=== PATIENT | female | born 1980 ===

== ENCOUNTER 2020-03-18 11:40 | Outpatient (CLI) | payer MEDICARE, MEDICAID | END 2020-03-18 23:59 | LOC: WOU 11:40 | PROVIDERS: ATTEND Podiatrist Foot & Ankle Surgery | DX: E11.621 Type 2 diabetes mellitus with foot ulcer (principal); L97.522 Non-pressure chronic ulcer of other part of left foot with fat layer exposed; M86.662 Other chronic osteomyelitis, left tibia and fibula; M86.672 Other chronic osteomyelitis, left ankle and foot; R22.42 Localized swelling, mass and lump, left lower limb; Z79.4 Long term (current) use of insulin; E66.01 Morbid (severe) obesity due to excess calories; Z68.43 Body mass index [BMI] 50.0-59.9, adult; Z79.01 Long term (current) use of anticoagulants; Z79.899 Other long term (current) drug therapy | CPT/HCPCS: 11042 ==

== ENCOUNTER 2020-12-21 21:23 | Inpatient (IN) | payer MEDICARE, OTHER ==
[~2020-12-21] VITALS: Ht 165.1 cm; Wt 152.0 kg
[2020-12-21] MEDS ORDERED: ACETAMINOPHEN 325 MG TABLET PO ONE (22:00)
[2020-12-21] MEDS ORDERED: ACETAMINOPHEN ES 500 MG TABLET ONE (22:15)
--- NOTE | 2020-12-21 23:06 | NUR ---
Kit garcia in [facility] - 12/21/20 at 2307 by NAN md verbal order 25mg benadryl
--- NOTE | 2020-12-21 23:06 | NUR ---
urine sent to lab
--- NOTE | 2020-12-21 23:07 | NUR ---
verbal order 25mg benadryl iv
[2020-12-21] MEDS ORDERED: diphenhydrAMINE HCL 50 MG/ML VIAL ONE (23:08)
[2020-12-21 23:21] LABS: BILIRUBIN,URINE Negative (NEGATIVE); COLOR,URINE YELLOW (YELLOW); LEUKOCYTE ESTERASE ,URINE Large (NEGATIVE); NITRITE, URINE Positive (NEGATIVE); PROTEIN,URINE Negative (NEGATIVE); UGLUCOSE Negative (NEGATIVE); UROBILINOGEN,URINE 0.2 EU/dL (0.2)
[2020-12-21] MEDS ORDERED: diphenhydrAMINE HCL 50 MG/ML VIAL IV ONE (23:30)
[2020-12-21 23:41] LABS: BACTERIA,URINE Few /HPF (None Seen); MUCUS,URINE Few /LPF (None Seen); RBC,URINE 21-50 /HPF (0-2); SQUAMOUS EPITHELIAL CELL,UR Few /HPF (None Seen); WBC,URINE 51-80 /HPF (0-3)
[2020-12-21 23:42] LABS: BASOPHILS # (AUTO) 0.2 K/uL (0.0-0.2); BASOPHILS % (AUTO) 1.3 % (0.0-2.0); EOSINOPHILS % (AUTO) 1.8 % (0.0-6.0); HEMATOCRIT 31 % (33-45); HEMOGLOBIN 9.4 g/dL (11.5-14.8); LYMPHOCYTES # (AUTO) 2.5 K/uL (0.8-4.8); MEAN CORPUSCULAR HGB CONC 31 g/dl (31.0-36.0); MEAN CORPUSCULAR VOLUME 80 fL (82-100); MONOCYTES # (AUTO) 0.7 K/uL (0.1-1.30); MONOCYTES % (AUTO) 4.3 % (2.0-12.0); NEUTROPHILS # (AUTO) 12.7 K/uL (1.8-8.9); NEUTROPHILS % (AUTO) 77.6 % (43.0-81.0); PLATELET COUNT (AUTO) 496 K/uL (150-450); RED BLOOD CELL COUNT(AUTO) 3.84 MIL/uL (4.0-5.2); WHITE BLOOD COUNT (AUTO) 16.4 K/uL (4.3-11.0)
--- NOTE | 2020-12-21 23:51 | NUR ---
rt at bedside
--- NOTE | 2020-12-21 23:55 | NUR ---
Pt placed on BIPAP via Full mask w/ mepiplex per ER MD on order settings. Will obtain ABG in 1 hour.
[2020-12-22] VITALS (33 sets, daily range): BP systolic 93–153; BP diastolic 45–102
[2020-12-22] MEDS ORDERED: CEFEPIME 1 GM in IV D5W 50 ML IV ONE
[2020-12-22] MEDS ORDERED: CEFEPIME 1 GM VIAL ONE (00:04)
[2020-12-22 00:10] LABS: ALANINE AMINOTRANSFERASE 16 U/L (12-78); ALBUMIN 2.8 g/dL (3.4-5.0); ALKALINE PHOSPHATASE 143 U/L (46-116); ASPARTATE AMINOTRANSFERASE 21 U/L (15-37); BILIRUBIN,DIRECT 0.1 mg/dL (0.0-0.2); BILIRUBIN,TOTAL 0.3 mg/dL (0.2-1.0); CALCIUM, SERUM 9.7 mg/dL (8.5-10.1); CHLORIDE 97 mmol/L (98-107); CREATININE 1.8 mg/dL (0.6-1.3); GLUCOSE 116 mg/dL (74-106); POTASSIUM 5.5 mmol/L (3.5-5.1); SODIUM SERUM 139 mmol/L (136-145); TOTAL PROTEIN, SERUM 8.6 g/dL (6.4-8.2); UREA NITROGEN, BLOOD 33 mg/dL (7-18)
[2020-12-22 00:15] LABS: CARBON DIOXIDE 41 mmol/L (21-32)
--- NOTE | 2020-12-22 01:06 | NUR ---
ICU 258 PER RN BONDING MACHINE OPERATOR.
--- NOTE | 2020-12-22 01:20 | NUR ---
called rt for breathing tx
[2020-12-22] MEDS ORDERED: ALBUTEROL FS 2.5 MG/3 ML VIAL.NEB NEB ONE (01:30)
[2020-12-22] MEDS ORDERED: IPRATROPIUM NEB FS 0.5 MG/2.5 ML AMPUL.NEB NEB ONE (01:30)
[2020-12-22] MEDS ORDERED: IPRATROPIUM NEB FS 0.5 MG/2.5 ML AMPUL.NEB ONE (01:30)
[2020-12-22] MEDS ORDERED: ALBUTEROL FS 2.5 MG/3 ML VIAL.NEB ONE (01:30)
[2020-12-22] MEDS ORDERED: ZOLPIDEM TARTRATE 5 MG TABLET PO PRN (02:00)
[2020-12-22] MEDS ORDERED: FUROSEMIDE 40 MG/4 ML VIAL IV ONE (02:00)
[2020-12-22] MEDS ORDERED: MAGNESIUM HYDROXIDE 30 ML UDC PO PRN (02:00)
[2020-12-22] MEDS ORDERED: Z GUARD REMEDY 2 OZ OINT TP PRN (02:00)
[2020-12-22] MEDS ORDERED: diphenhydrAMINE HCL 50 MG/ML VIAL ONE (02:29)
[2020-12-22] MEDS: diphenhydrAMINE HCL 50 MG/ML VIAL IV PRN ×3 (02:45→20:41)
--- NOTE | 2020-12-22 02:56 | NUR ---
CALLED AFTER HOUR PHARMACY TO VERIFY THE ADMITTINGG ORDERS
[2020-12-22] MEDS ORDERED: FUROSEMIDE 40 MG/4 ML VIAL ONE (03:20)
--- NOTE | 2020-12-22 04:45 | NUR ---
lab at bedside
[2020-12-22 04:57] LABS: BASOPHILS # (AUTO) 0.1 K/uL (0.0-0.2); BASOPHILS % (AUTO) 0.8 % (0.0-2.0); EOSINOPHILS % (AUTO) 1.8 % (0.0-6.0); HEMATOCRIT 34 % (33-45); HEMOGLOBIN 10.3 g/dL (11.5-14.8); LYMPHOCYTES # (AUTO) 2.5 K/uL (0.8-4.8); LYMPHOCYTES % (AUTO) 16.7 % (20.0-44.0); MEAN CORPUSCULAR HGB CONC 31 g/dl (31.0-36.0); MEAN CORPUSCULAR VOLUME 81 fL (82-100); MONOCYTES # (AUTO) 0.5 K/uL (0.1-1.30); MONOCYTES % (AUTO) 3.2 % (2.0-12.0); NEUTROPHILS # (AUTO) 11.6 K/uL (1.8-8.9); NEUTROPHILS % (AUTO) 77.5 % (43.0-81.0); PLATELET COUNT (AUTO) 439 K/uL (150-450); RED BLOOD CELL COUNT(AUTO) 4.16 MIL/uL (4.0-5.2)
[2020-12-22 05:05] LABS: CALCIUM, SERUM 10.2 mg/dL (8.5-10.1); CREATININE 1.9 mg/dL (0.6-1.3); MAGNESIUM 2.9 mg/dL (1.8-2.4); PHOSPHORUS 4.6 mg/dL (2.5-4.9); POTASSIUM 5.3 mmol/L (3.5-5.1)
[2020-12-22 05:36] LABS: ABG BASE EXCESS 11.6 mmol/L; ABG BASE EXCESS 13.9 mmol/L; ABG OXYGEN SATURATION 92.5 % (92.0-98.5); ABG OXYGEN SATURATION 94.5 % (92.0-98.5); ABG PCO2 86.3 mmHg (35.0-45.0); ABG PCO2 92.9 mmHg (35.0-45.0); ABG PH 7.289 (7.350-7.450); ABG PH 7.292 (7.350-7.450); ABG PO2 72.5 mmHg (75.0-100.0); ABG PO2 84.1 mmHg (75.0-100.0); AaDO2 395.7 mmHg; AaDO2 400.4 mmHg; COHb 0.3 % (0.5-1.5); COHb 0.4 % (0.5-1.5); MetHb 0.4 % (0.0-1.5); O2Hb 91.9 % (94.0-97.0); O2Hb 93.7 % (94.0-97.0); SITE, ABG Right Radial; VENT MODE, BG NRB 15L
[2020-12-22 05:36] LABS: ABG BASE EXCESS 13.7 mmol/L; ABG OXYGEN SATURATION 93.9 % (92.0-98.5); ABG PCO2 85.6 mmHg (35.0-45.0); ABG PH 7.316 (7.350-7.450); ABG PO2 75.7 mmHg (75.0-100.0); AaDO2 404.8 mmHg; COHb 0.3 % (0.5-1.5); MetHb 0.3 % (0.0-1.5); O2Hb 93.3 % (94.0-97.0); SITE, ABG Left Radial
--- NOTE | 2020-12-22 06:13 | NUR ---
rt at bedside. Pt weaned to 50% O2. Pt saturating 97%. will continue to monitor.
--- NOTE | 2020-12-22 06:14 | NUR ---
called house sup to call for picc line
--- NOTE | 2020-12-22 07:02 | NUR ---
GAVE REPORT TO FERNANDO BULLOCK FOR JOAQUIM
--- NOTE | 2020-12-22 07:15 | NUR ---
PATIENT AWAKE AND ALERT, NO DISTRESS NOTED, O2 SAT SHOWS 95-99% ON BIPAP. COTTON CATHETER INTACT AND DRAINING WELL.
--- NOTE | 2020-12-22 07:30 | NUR ---
PATIENT ATTEMPTING TO REMOVE BIPAP MULTIPLE TIMES DESPITE REDIRECTION, PATIENT IS UNCOMFORTABLE AND IS REQUESTING FOR [employer] CANNULA HIGH FLOW. RT MADE AWARE.
--- NOTE | 2020-12-22 07:32 | NUR ---
PATIENT SPO2 SHOWS 88% ON BIPAP, PATIENT KEPT REMOVING THE BIPAP.
--- NOTE | 2020-12-22 07:49 | NUR ---
PATIENT IS TOLERATING NASA CANNULA HIGH FLOW AT THIS TIME. ON 30L 50%. WITH SPO2 OF 92-96%.
--- NOTE | 2020-12-22 07:51 | NUR ---
DR. BEAVER MADE AWARE RE: NASAL CANNULA HF.
--- NOTE | 2020-12-22 07:59 | NUR ---
DR. ULYSSES MULLER MADE AWARE OF PATIENT'S CHANGED FROM BIPAP TO NCHF, AND C/O FEELING ANXIOUSNESS.
[2020-12-22] MEDS ORDERED: NIFE-34 PO (08:15)
[2020-12-22] MEDS ORDERED: MAGN400O6 PO (08:15)
[2020-12-22] MEDS ORDERED: INSU100V7 SQ ×2 (08:15)
[2020-12-22] MEDS ORDERED: ATOR10TA PO (08:15)
[2020-12-22] MEDS ORDERED: POLY17PO4 PO (08:15)
[2020-12-22] MEDS ORDERED: PANT40TA2 PO (08:15)
[2020-12-22] MEDS ORDERED: GABA600T12 PO (08:15)
[2020-12-22] MEDS ORDERED: CRAN425C6 PO (08:15)
[2020-12-22] MEDS ORDERED: DEXT38GE12 PO (08:15)
[2020-12-22] MEDS ORDERED: ALBU18HF2 IH (08:15)
[2020-12-22] MEDS ORDERED: HYDR-4075 PO (08:15)
[2020-12-22] MEDS ORDERED: BUME1TAB8 PO (08:15)
[2020-12-22] MEDS ORDERED: CALC1TAB30 PO (08:15)
[2020-12-22] MEDS ORDERED: RISP0.2515 PO (08:15)
[2020-12-22] MEDS ORDERED: HEPA50007 SQ (08:15)
[2020-12-22] MEDS ORDERED: BENZ-13 PO (08:15)
[2020-12-22] MEDS ORDERED: CARV25TA2 PO (08:15)
[2020-12-22] MEDS ORDERED: LEVO25TA7 PO (08:15)
[2020-12-22] MEDS ORDERED: ONDA4TAB5 PO (08:15)
[2020-12-22] MEDS ORDERED: MONT10TA22 PO (08:15)
[2020-12-22] MEDS ORDERED: ACET-2605 PO (08:15)
[2020-12-22] MEDS ORDERED: METH5TAB2 PO (08:15)
[2020-12-22] MEDS ORDERED: ACET-868 PO (08:15)
[2020-12-22] MEDS ORDERED: DIPH25CA83 PO (08:15)
[2020-12-22] MEDS ORDERED: CRAN3875 PO (08:15)
[2020-12-22] MEDS ORDERED: NITR0.4T48 SL (08:15)
[2020-12-22] MEDS ORDERED: FOLI0.8T23 PO (08:15)
[2020-12-22] MEDS ORDERED: ASPI-1420 PO (08:15)
[2020-12-22] MEDS ORDERED: DOCU-141 PO (08:15)
[2020-12-22] MEDS ORDERED: INSU100V11 SQ ×2 (08:15)
[2020-12-22] MEDS ORDERED: TRAM50TA2 PO (08:15)
[2020-12-22] MEDS ORDERED: MELA5TAB PO (08:15)
--- NOTE | 2020-12-22 08:19 | NUR ---
AMRIT KING UPDATED RE: PATIENT'S RESPIRATORY STATUS.
--- NOTE | 2020-12-22 08:35 | NUR ---
PATIENT TRANSFERRED TO ROOM 261 VIA ACLS PROTOCOL, ENDORSED TO AMRIT KING, PATIENT IN GUARDED CONDITION.
--- NOTE | 2020-12-22 08:45 | NUR ---
RN NOTE PT TRANSFERRED FROM RPROCIOUS TO BED, ON HIGH FLOW NC 30L, 60% O2, SPO2 90-94%, NO SIGNS OF RESP DISTRESS OR SOB. PT IS A/Ox3 WITH PERIODS OF CONFUSION, PT IS ANXIOUS. NO PAIN NOTED. PT ALLERGIES NOTED AND DOCUMENTED. PT RAC #20 NOT INTACT, DISLODGED. PT COTTON CATH INTACT DRAINING CLEAR KYAW URINE TO GRAVITY. PT BLE SCARS AND ABD AND CHEST SCARS NOTED. ALL PT SAFETY PRECAUTIONS IN PLACE, WILL CONT TO MONITOR
[2020-12-22] MEDS: NITROGLYCERIN 0.4 MG/TAB BOTTLE SL PRN (09:40)
[2020-12-22] MEDS: CEFEPIME 2 GM in IV D5W 100 ML IV SCH ×2 (09:40→21:00)
--- NOTE | 2020-12-22 09:45 | NUR ---
RN NOTE PER PT, 0/10 CHEST PAIN POST NITRO 0.4 SL SDMIN. WILL CONT TO MONITOR. BP STABLE
[2020-12-22] MEDS ORDERED: BUMETANIDE INJ 6 MG in IV D5W 36 ML IV ONE (11:00)
[2020-12-22] MEDS: IPRATROPIUM NEB FS 0.5 MG/2.5 ML AMPUL.NEB NEB SCH ×4 (11:30→23:21)
[2020-12-22] MEDS: ALBUTEROL HALF STRENGTH 1.25 MG/3 ML VIAL.NEB NEB SCH ×4 (11:30→23:21)
--- NOTE | 2020-12-22 12:00 | NUR ---
RT RESP TX'S HELD STILL WAITING ON COVID PCR RESULTS
[2020-12-22 12:02] LABS: IRON, SERUM 25 ug/dl (50-175); TOTAL IRON BINDING CAPACITY 324 ug/dl (250-450)
[2020-12-22 12:17] LABS: FERRITIN 69 ng/mL (8-388); THYROID STIMULATING HORMONE 1.448 uIU/mL (0.358-3.74)
[2020-12-22] MEDS: ACETAMINOPHEN 325 MG TABLET PO PRN ×2 (12:37→18:30)
[2020-12-22] MEDS ORDERED: DEXTROSE 50%-WATER 50 ML DISP.SYRIN IV PRN (13:00)
[2020-12-22] MEDS: BLOOD SUGAR DIAGNOSTIC 1 EACH STRIP IN SCH ×3 (13:17→21:43)
[2020-12-22] MEDS: LORAZEPAM INJ 2 MG/ML VIAL IV PRN (13:48)
--- NOTE | 2020-12-22 14:01 | NUR ---
RN NOTE PER DR HARRISON, NO THORACENTESIS PROCEDURE D/T NOT ENOUGH FLUIDS PER ULTRASOUND
[2020-12-22] MEDS: HEPARIN SODIUM, PORCINE 5000 UNITS/1 ML VIAL SQ SCH ×2 (14:54→20:48)
--- NOTE | 2020-12-22 14:55 | NUR ---
RN NOTE HELD HEPARIN UNTIL NOW D/T SCHEDULED THORACENTESIS PROCEDURE, NEVER DONE. PER DR ARORA, OK TO ADMIN NOW
[2020-12-22] MEDS: INSULIN REGULAR, HUMAN 100 UNIT/ML 3 ML VIAL SQ PRN ×2 (17:36→21:43)
[2020-12-22] MEDS: METHADONE HCL 5 MG TABLET PO SCH (18:17)
--- NOTE | 2020-12-22 19:00 | NUR ---
SUPERVISING ARCHITECT CLOSING NOTE PT ON HIGH FLOW NC 40L 60%, NO S/S OF RESP DISTRESS OR SOB, SPO2 >94%. PT IN STABLE CONDITION. ALL PT SAFETY PRECAUTIONS IN PLACE, JOAQUIM ENDORSED TO METAL ORGAN PIPE MAKER RN
--- NOTE | 2020-12-22 19:30 | NUR ---
BOOM STICK WORKER OPENING NOTES: RECEIVED PT A/OX4 IN BED RESTING COMFORTABLY. PATIENT IN NO S/SX OF ACUTE DISTRESS AT THIS TIME. NO SOB NOTED. PATIENT'S BREATHING IS EVEN AND UNLABORED. PATIENT IS ON HF NC 40L 100%; TOLERATING WELL. PATIENT ON TELE MONITORING READING SINUS TACHY HR IS @102 AT THE TIME OF RECEIVED. PATIENT ON CCHO DIET; TOLERATES WELL. NOTED IV SITE ON R UA PICC LINE ; PATENT, INTACT AND FLUSHING WELL; NO S/S OF INFECTION OR INFILTRATION. COTTON CATH IN PLACE, MODERATE URINE OUTPUT NOTED.SAFETY MEASURES HAVE BEEN PROVIDED AND IMPLEMENTED. PATIENT BED ALARM IS ON. HEAD OF BED ELEVATED. BED IS LOCKED, IN LOWEST POSITION AND SIDE RAILS UP. CALL LIGHT WITHIN REACH OF THE PATIENT. APPLICABLE ISOLATION PRECAUTIONS IN PLACE. WILL CONTINUE TO MONITOR AND REASSESS FOR ANY CHANGES AND WILL CARRY OUT ANY ONGOING AND ACTIVE MD ORDER.
--- NOTE | 2020-12-22 19:30 | NUR ---
1929 breathing tx not administered to pt due to pending covid19 test. rn notified
--- NOTE | 2020-12-22 23:22 | NUR ---
2330 breathing tx not administered to pt due to pending covid19 test. rn notified
[2020-12-23] VITALS (26 sets, daily range): BP systolic 97–155; BP diastolic 63–100
--- NOTE | 2020-12-23 | NUR ---
RN NOTES PATIENT REMAINED TO BE IN NO SIGNS OF ACUTE RESPIRATORY DISTRESS , VITAL SIGNS WNL AT THIS TIME. PT CARE RENDERED. WILL CONTINUE TO MONITOR AND REASSESS FOR ANY CHANGES THROUGHOUT THE SHIFT.
[2020-12-23] MEDS: IPRATROPIUM NEB FS 0.5 MG/2.5 ML AMPUL.NEB NEB SCH ×6 (03:30→23:30)
[2020-12-23] MEDS: ALBUTEROL HALF STRENGTH 1.25 MG/3 ML VIAL.NEB NEB SCH ×6 (03:30→23:30)
--- NOTE | 2020-12-23 04:00 | NUR ---
RN NOTES NO NOTED CHANGES IN PATIENT CONDITION AT THIS TIME; PATIENT VITALS STABLE, NO SIGNS OF ACUTE RESPIRATORY DISTRESS. AM PATIENT CARE RENDERED. WILL CONTINUE TO MONITOR AND REASSESS FOR ANY CHANGES THROUGHOUT THE SHIFT.
--- NOTE | 2020-12-23 04:02 | NUR ---
RN NOTES RADIOLOGY WENT IN TO DO SCHEDULED CXR; PT REFUSED. RN WAS ADVISED. RN EXPLAINED RISK AND BENEFITS BUT PT STILL REFUSED. WOOD FUEL PELLETIZER MADE AWARE. WILL INFORM MD IN THE MORNING ABOUT PT REFUSAL. WILL ALSO ADVISE AM SHIFT RN AND CHARGE.
[2020-12-23 04:24] LABS: BASOPHILS # (AUTO) 0.1 K/uL (0.0-0.2); BASOPHILS % (AUTO) 0.5 % (0.0-2.0); EOSINOPHILS % (AUTO) 2.1 % (0.0-6.0); HEMATOCRIT 29 % (33-45); HEMOGLOBIN 8.7 g/dL (11.5-14.8); LYMPHOCYTES # (AUTO) 2.3 K/uL (0.8-4.8); LYMPHOCYTES % (AUTO) 18.7 % (20.0-44.0); MEAN CORPUSCULAR HGB CONC 30 g/dl (31.0-36.0); MEAN CORPUSCULAR VOLUME 80 fL (82-100); MONOCYTES # (AUTO) 0.6 K/uL (0.1-1.30); MONOCYTES % (AUTO) 5.1 % (2.0-12.0); NEUTROPHILS # (AUTO) 9.2 K/uL (1.8-8.9); NEUTROPHILS % (AUTO) 73.6 % (43.0-81.0); PLATELET COUNT (AUTO) 400 K/uL (150-450); RED BLOOD CELL COUNT(AUTO) 3.58 MIL/uL (4.0-5.2); WHITE BLOOD COUNT (AUTO) 12.4 K/uL (4.3-11.0)
[2020-12-23 04:49] LABS: ALBUMIN 2.6 g/dL (3.4-5.0); BILIRUBIN,TOTAL 0.2 mg/dL (0.2-1.0); CALCIUM, SERUM 9.7 mg/dL (8.5-10.1); CREATININE 1.8 mg/dL (0.6-1.3); MAGNESIUM 2.6 mg/dL (1.8-2.4); PHOSPHORUS 3.9 mg/dL (2.5-4.9); POTASSIUM 4.6 mmol/L (3.5-5.1)
--- NOTE | 2020-12-23 04:50 | NUR ---
RN NOTES RECEIVED CALL FROM LAB; SPOKE WITH PETRA INFORMED ABOUT CRITICAL LAB, CO2@42MMOL/L. WILL INFORM LISSY GANDHI IN THE MORNING (YESTERDAY'S RESULT WAS 39H). RN PICU MADE AWARE. *CO2 TREND: 12.21.2020: 41 12.22.2020: 39 12.23.2020: 42
[2020-12-23] MEDS: diphenhydrAMINE HCL 50 MG/ML VIAL IV PRN ×3 (05:32→18:33)
--- NOTE | 2020-12-23 07:00 | NUR ---
RN CLOSING NOTE: PATIENT REMAINS IN ROOM IN NO SIGNS OF RESPIRATORY DISTRESS, PATIENT STILL ON HF VIA NC @ 40L 60%;TOLERATING WELL SATURATING @ >95% SP02. SAFETY MEASURES IMPLEMENTED, BED IN LOWEST POSITION, LOCKED, SIDE RAILS UP, CALL LIGHT WITHIN REACH. ALL NEEDS AND ORDERS ADDRESSED DURING THE SHIFT. IV ACCESS MAINTAINED INTACT, SECURED AND FLUSHING WELL. ALL DUE MEDS GIVEN ORDERED & SCHEDULED ; PATIENT TOLERATED WELL. PATIENT KEPT CLEAN AND COMFORTABLE WITHIN THE SHIFT. PATIENT ENDORSED TO INCOMING SHIFT RN WITH STABLE VITAL SIGN AND FOR CONTINUITY OF CARE.
--- NOTE | 2020-12-23 07:40 | NUR ---
ICU/RN PT IS ON HI-FLOW O2,SAT O2-98%.V/S STABLE ,AFEBRILE.NO PAIN REPORTED AT THIS TIME.PT IS RESTING IN THE BED.AWAKE ,ALERT ,ORIENTED.OBESE.F/C DRAINING WITH YELLOW URINE.RIGHT UPPER ARM PICC LINE.REDNESS ON DARLYN AREA AND LOWER BACK NOTED.LABS REVIEW.
[2020-12-23] MEDS: BLOOD SUGAR DIAGNOSTIC 1 EACH STRIP IN SCH ×4 (07:41→21:19)
[2020-12-23 07:57] LABS: ABG BASE EXCESS 16.7 mmol/L; ABG OXYGEN SATURATION 89.2 % (92.0-98.5); ABG PCO2 60.1 mmHg (35.0-45.0); ABG PH 7.469 (7.350-7.450); ABG PO2 54.8 mmHg (75.0-100.0); AaDO2 146.7 mmHg; COHb 0.7 % (0.5-1.5); MetHb 0.1 % (0.0-1.5); O2Hb 88.5 % (94.0-97.0); SITE, ABG Right Radial; VENT MODE, BG NASAL CANNULA
--- NOTE | 2020-12-23 08:00 | NUR ---
RT RESP HHN TXS HELD WAITING ON NEGATIVE COVID PCR RESULTS
--- NOTE | 2020-12-23 09:00 | NUR ---
ICU/RN DUE MEDS ARE GIVEN ORDERED.PT REFUSED TO EAT BREAKFAST.PLACED ON 5L N/C SAT O2-95-98%.AM CARE PROVIDED.CONTINUE MONITORING.
[2020-12-23] MEDS: CEFEPIME 2 GM in IV D5W 100 ML IV SCH ×2 (09:29→20:41)
[2020-12-23] MEDS: METHADONE HCL 5 MG TABLET PO SCH (09:30)
[2020-12-23] MEDS: HEPARIN SODIUM, PORCINE 5000 UNITS/1 ML VIAL SQ SCH ×2 (09:31→20:42)
[2020-12-23] MEDS: FUROSEMIDE 100 MG/10 ML VIAL IV SCH ×3 (10:01→16:23)
[2020-12-23] MEDS: LORAZEPAM INJ 2 MG/ML VIAL IV PRN ×2 (13:33→20:39)
[2020-12-23] MEDS: INSULIN REGULAR, HUMAN 100 UNIT/ML 3 ML VIAL SQ PRN ×2 (13:43→21:20)
[2020-12-23] MEDS: SOD FERRIC GLUC 125 MG in IV NS 0.9% 100 ML IV SCH (14:17)
[2020-12-23] MEDS: ACETAMINOPHEN 325 MG TABLET PO PRN (18:33)
--- NOTE | 2020-12-23 19:30 | NUR ---
PROGRAM COORDINATOR FOR [employer]ID[employer] LIFE OPENING NOTES: RECEIVED PT A/OX3-44 IN BED RESTING COMFORTABLY. PATIENT IN NO S/SX OF ACUTE DISTRESS AT THIS TIME. NO SOB NOTED. PATIENT'S BREATHING IS EVEN AND UNLABORED. PATIENT IS ON 5L OF O2 VIA NC; TOLERATING WELL WITH 02 SAT OF 98% AT THE TIME OF RECEIVED. PATIENT ON TELE MONITORING READING SINUS TACHY HR IS @104 AT THE TIME OF RECEIVED. PATIENT ON CCHO DIET; TOLERATES WELL. NOTED IV SITE ON R UA PICC LINE ; PATENT, INTACT AND FLUSHING WELL; NO S/S OF INFECTION OR INFILTRATION. COTTON CATH IN PLACE, MODERATE URINE OUTPUT NOTED.SAFETY MEASURES HAVE BEEN PROVIDED AND IMPLEMENTED. PATIENT BED ALARM IS ON. HEAD OF BED ELEVATED. BED IS LOCKED, IN LOWEST POSITION AND SIDE RAILS UP. CALL LIGHT WITHIN REACH OF THE PATIENT. APPLICABLE ISOLATION PRECAUTIONS IN PLACE. WILL CONTINUE TO MONITOR AND REASSESS FOR ANY CHANGES AND WILL CARRY OUT ANY ONGOING AND ACTIVE MD ORDER.
--- NOTE | 2020-12-23 19:55 | NUR ---
1929 breathing tx not administered to pt due to pending covid19 test. rn notified
[2020-12-24] VITALS (15 sets, daily range): BP systolic 115–150; BP diastolic 72–109
--- NOTE | 2020-12-24 01:00 | NUR ---
RN NOTES PT GIVEN WITH PRN BENADRYL (25MG) PER REQUEST. UPON ADMINISTRATION PT COMPLAINTS AND REQUESTED FOR A HIGHER DOSE (50MG). PT IS ALSO REFUSING BIPAP UNLESS SHE CAN GET ANOTHER 25MG DOSE OF BENADRYL. TOOL HONING MACHINE SET UP OPERATOR MADE AWARE. INFORMED LISSY GANDHI ( [employer] AND INFORMED ABOUT PT'S REQUEST. LISSY ORDERED: ONE TIME ORDER OF 25MG BENADRYL NOW AND CHANGE EXISTING ORDER OF BENADRYL 25MG TO 50MG Q6H PRN. TOOL HONING MACHINE SET UP OPERATOR MADE AWARE. WILL CARRY OUT ORDER OF LISSY GANDHI. Addendum: 12/24/20 at 0135 by SARAH PERALTA RN @0133- ADVISED RT TO RE-INITIATE BIPAP; RN ALREADY GAVE AND ADMINISTER BENADRUL PER PT'S REQUESTS AND EXPLAINED IMPORTANCE OF BIPAP. PT ACKNOWLEDGED.
[2020-12-24] MEDS: diphenhydrAMINE HCL 50 MG/ML VIAL IV PRN ×4 (01:01→20:07)
--- NOTE | 2020-12-24 01:13 | NUR ---
2330 breathing tx not administered to pt due to pending covid19 test. rn notified
[2020-12-24] MEDS ORDERED: diphenhydrAMINE HCL 50 MG/ML VIAL IV ONE (01:20)
--- NOTE | 2020-12-24 01:45 | NUR ---
pt agitated at this time. settings adjusted for pt to tolerate. st 14 15 40% Addendum: 12/24/20 at 0644 by ERUM EASLEY RT Amended: Links added.
[2020-12-24] MEDS: ACETAMINOPHEN 325 MG TABLET PO PRN ×2 (02:11→08:24)
[2020-12-24] MEDS: IPRATROPIUM NEB FS 0.5 MG/2.5 ML AMPUL.NEB NEB SCH ×6 (03:30→23:21)
[2020-12-24] MEDS: ALBUTEROL HALF STRENGTH 1.25 MG/3 ML VIAL.NEB NEB SCH ×6 (03:30→23:21)
--- NOTE | 2020-12-24 04:00 | NUR ---
RN NOTES NO NOTED CHANGES IN PATIENT CONDITION AT THIS TIME; NO SIGNS OF ACUTE RESPIRATORY DISTRESS; PT STILLON NOCTURNAL BIPAP. AM PATIENT CARE RENDERED. ASH COLLECTOR MADE AWARE. WILL CONTINUE TO MONITOR AND REASSESS FOR ANY CHANGES THROUGHOUT THE SHIFT.
--- NOTE | 2020-12-24 04:38 | NUR ---
0330 breathing tx not administered to pt due to pending covid19 test. rn notified
--- NOTE | 2020-12-24 06:50 | NUR ---
RN NOTES PT REQUESTED TO BE OFF HOOKED WITH HER NOCTURNAL BIPAP; RN ACKNOWLEDGED AND DONE. PT REMAINED STABLE AND SAT @100% 02 SAT. TOWBOAT CAPTAIN MADE AWARE.
--- NOTE | 2020-12-24 07:07 | NUR ---
RN CLOSING NOTE: PATIENT REMAINS IN ROOM IN NO SIGNS OF RESPIRATORY DISTRESS, PATIENT STILL ON 5L OF 02 VIA NC;TOLERATING WELL SATURATING @ >95% SP02. SAFETY MEASURES IMPLEMENTED, BED IN LOWEST POSITION, LOCKED, SIDE RAILS UP, CALL LIGHT WITHIN REACH. ALL NEEDS AND ORDERS ADDRESSED DURING THE SHIFT. IV ACCESS MAINTAINED INTACT, SECURED AND FLUSHING WELL. ALL DUE MEDS GIVEN ORDERED & SCHEDULED ; PATIENT TOLERATED WELL. PATIENT KEPT CLEAN AND COMFORTABLE WITHIN THE SHIFT. PATIENT ENDORSED TO INCOMING SHIFT RN WITH STABLE VITAL SIGN AND FOR CONTINUITY OF CARE.
[2020-12-24] MEDS: ONDANSETRON HCL/PF 4 MG/2 ML VIAL IVP PRN ×3 (07:26→20:07)
--- NOTE | 2020-12-24 07:30 | NUR ---
RECORD RETRIEVAL SPECIALIST OPENING NOTE PT SIDE LYING IN BED, A/Ox4, ON NC 5L SPO2 95%, NO S/S OF RESP DISTRESS OR SOB. PT C/O NAUSEA AND ABD PAIN 5/10, ZOFRAN AND TYLENOL WILL BE GIVEN. PT SINUS TACHY IN 100s ON BEDSIDE MONITOR. PT OSVALDO PICC FLUCHING WELL, NO S/S OF INFECTION/INFILTRATION. ALL PT SAFETY PRECAUTIONS IN PLACE, WILL CONT TO MONITOR
[2020-12-24] MEDS: BLOOD SUGAR DIAGNOSTIC 1 EACH STRIP IN SCH ×4 (07:37→22:40)
[2020-12-24] MEDS: CEFEPIME 2 GM in IV D5W 100 ML IV SCH ×2 (08:23→20:06)
[2020-12-24] MEDS: HEPARIN SODIUM, PORCINE 5000 UNITS/1 ML VIAL SQ SCH ×2 (08:24→20:09)
[2020-12-24] MEDS: METHADONE HCL 5 MG TABLET PO SCH (08:24)
[2020-12-24] MEDS: TRAMADOL HCL 50 MG TABLET PO PRN ×2 (10:48→19:35)
--- NOTE | 2020-12-24 11:00 | NUR ---
RN NOTE PT TRANSFERRED TO TELE BED 104-1 IN STABLE CONDITION. ON NC 5L, SPO2 ABOVE 95%, NO RESP DISTRESS OR SOB. ALL PT SAFETY PRECAUTIONS IN PLACE. BEDSIDE REPORT GIVEN TO FERNANDO CLANCY
--- NOTE | 2020-12-24 11:30 | NUR ---
RN NOTES RECEIVED PT FROM ICU. REPORT GIVEN BY AMRIT KING. PT IN STABLE CONDITION. WILL CONTINUE TO MONITOR.
[2020-12-24] MEDS: GABAPENTIN 300 MG CAPSULE PO SCH ×2 (12:14→20:06)
[2020-12-24] MEDS: INSULIN REGULAR, HUMAN 100 UNIT/ML 3 ML VIAL SQ PRN ×3 (12:49→22:58)
[2020-12-24] MEDS: SOD FERRIC GLUC 125 MG in IV NS 0.9% 100 ML IV SCH (13:42)
[2020-12-24] MEDS: INSULIN ASPART/LISPRO 100 UNIT/ML CARTRIDGE SQ SCH ×2 (14:03→18:00)
[2020-12-24] MEDS: risperiDONE 0.25 MG TABLET PO SCH (17:00)
--- NOTE | 2020-12-24 17:10 | NUR ---
RN NOTES PT REFUSED RISPERIDONE. BENEFITS EXPLAINED.
--- NOTE | 2020-12-24 19:21 | NUR ---
RN NOTE PATIENT IN BED, SIDE-LYING. AWAKE, ALERT, AND ORIENTED X3. ON O2 5L VIA NASAL CANNULA. NO SOB OR ANY ACUTE RESPIRATORY DISTRESS. COTTON CATHETER DRAINING YELLOW URINE VIA GRAVITY. COMPLAINED OF SEVERE BACK PAIN, WILL ADMINISTER DUE PRN MEDICATION. IV ACCESS ON OSVALDO PICC, PATENT AND INTACT. BED LOCKED AND IN LOWEST POSITION. CALL LIGHT WITHIN REACH. ALL NEEDS ANTICIPATED.
--- NOTE | 2020-12-24 19:26 | NUR ---
RT neb tx not given due to pending pcr lab results
[2020-12-24] MEDS ORDERED: Medication Not On Formulary EA (Melatonin 5 MG) PO SCH (22:00)
[2020-12-24] MEDS: ATORVASTATIN 10 MG TABLET PO SCH (22:00)
[2020-12-24] MEDS: MONTELUKAST SODIUM (10MG) 10 MG TABLET PO SCH (22:00)
[2020-12-24] MEDS: MAG HYDROX/AL HYDROX/SIMETH 30 ML UDC PO PRN (22:39)
[2020-12-24] MEDS: INSULIN GLARGINE, 100 UNIT/ML CARTRIDGE SQ SCH (22:54)
[2020-12-25] VITALS: BP 113/74
[2020-12-25] MEDS: diphenhydrAMINE HCL 50 MG/ML VIAL IV PRN ×3 (02:50→18:02)
[2020-12-25] MEDS: ACETAMINOPHEN 325 MG TABLET PO PRN (02:50)
[2020-12-25] MEDS: IPRATROPIUM NEB FS 0.5 MG/2.5 ML AMPUL.NEB NEB SCH ×6 (03:30→23:30)
[2020-12-25] MEDS: ALBUTEROL HALF STRENGTH 1.25 MG/3 ML VIAL.NEB NEB SCH ×6 (03:30→23:30)
[2020-12-25 04:00] VITALS: BP 135/91
[2020-12-25] MEDS: GABAPENTIN 300 MG CAPSULE PO SCH ×3 (04:24→21:00)
[2020-12-25] MEDS: MAG HYDROX/AL HYDROX/SIMETH 30 ML UDC PO PRN ×3 (06:15→19:04)
[2020-12-25] MEDS: ONDANSETRON HCL/PF 4 MG/2 ML VIAL IVP PRN ×3 (06:15→19:04)
--- NOTE | 2020-12-25 07:05 | NUR ---
RN NOTE PATIENT RESTING IN BED. COMPLAINED OF SHORTNESS OF BREATH, O2 SAT 88% AT THIS TIME. APPLIED O2 8L VIA SIMPLE MASK. O2 SAT 93%. COTTON CATHETER DRAINING YELLOW KYAW URINE, OUTPUT 350CC. IV ACCESS ON OSVALDO PICC, PATENT AND INTACT. BED LOCKED AND IN LOWEST POSITION. CALL LIGHT WITHIN REACH. ALL NEEDS ATTENDED PROMPTLY. WILL ENDORSE TO AM SHIFT. Addendum: 12/25/20 at 0716 by ROMAN MITCHELL RN O2 10L VIA SIMPLE MASK
--- NOTE | 2020-12-25 07:30 | NUR ---
RN NOTE PT FOUND SEMI FOWLERS POSITION IN BED DISPLAYING S/S OF MILD DISTRESS, PT ENDORSES 10/10 PAIN SCALE AND MODERATELY LABORED BREATHING. PT C/O NAUSEA AND EPIGASTRIC PAIN. PT ALSO C/O TIGHTNESS IN CHEST. RN WILL TREAT PRN. PT CURRENTLY ON 10L O2 SIMPLE MASK. PT IS A&OX4. R PICC, PATIENT AND INTACT. RN WILL TREAT AND MONITOR.
[2020-12-25] MEDS: PANTOPRAZOLE 40 MG TABLET.DR PO SCH (07:58)
[2020-12-25] MEDS: LEVOTHYROXINE SODIUM 25 MCG TABLET PO SCH (07:58)
[2020-12-25] MEDS: BLOOD SUGAR DIAGNOSTIC 1 EACH STRIP IN SCH ×4 (07:58→21:03)
[2020-12-25 08:00] VITALS: BP 117/72
[2020-12-25] MEDS: INSULIN ASPART/LISPRO 100 UNIT/ML CARTRIDGE SQ SCH ×3 (08:01→18:05)
[2020-12-25 08:06] LABS: *SPE A/G RATIO 0.7 (0.7-1.7); *SPE ALPHA-1-GLOBULIN 0.3 g/dL (0.0-0.4); *SPE ALPHA-2-GLOBULIN 1.1 g/dL (0.4-1.0); *SPE BETA GLOBULIN 1.5 g/dL (0.7-1.3); *SPE M-SPIKE Not Observed g/dL (Not Observed)
[2020-12-25] MEDS: NITROGLYCERIN 0.4 MG/TAB BOTTLE SL PRN (08:10)
[2020-12-25] MEDS: LORAZEPAM INJ 2 MG/ML VIAL IV PRN (08:38)
[2020-12-25] MEDS: TRAMADOL HCL 50 MG TABLET PO PRN ×2 (08:38→22:04)
[2020-12-25] MEDS: risperiDONE 0.25 MG TABLET PO SCH ×3 (09:00→17:00)
[2020-12-25 09:39] LABS: BASOPHILS # (AUTO) 0.1 K/uL (0.0-0.2); BASOPHILS % (AUTO) 0.6 % (0.0-2.0); EOSINOPHILS % (AUTO) 1.5 % (0.0-6.0); HEMATOCRIT 29 % (33-45); LYMPHOCYTES # (AUTO) 2.5 K/uL (0.8-4.8); LYMPHOCYTES % (AUTO) 17.2 % (20.0-44.0); MEAN CORPUSCULAR HGB CONC 31 g/dl (31.0-36.0); MEAN CORPUSCULAR VOLUME 80 fL (82-100); MONOCYTES % (AUTO) 6.7 % (2.0-12.0); NEUTROPHILS # (AUTO) 10.6 K/uL (1.8-8.9); PLATELET COUNT (AUTO) 420 K/uL (150-450); RED BLOOD CELL COUNT(AUTO) 3.67 MIL/uL (4.0-5.2); WHITE BLOOD COUNT (AUTO) 14.3 K/uL (4.3-11.0)
[2020-12-25] MEDS: ASPIRIN EC 81 MG TABLET.DR PO SCH (09:40)
[2020-12-25] MEDS: METHADONE HCL 5 MG TABLET PO SCH (09:40)
[2020-12-25] MEDS: CEFEPIME 2 GM in IV D5W 100 ML IV SCH ×2 (09:40→21:07)
[2020-12-25] MEDS: HEPARIN SODIUM, PORCINE 5000 UNITS/1 ML VIAL SQ SCH ×2 (09:43→21:06)
[2020-12-25] MEDS: INSULIN GLARGINE, 100 UNIT/ML CARTRIDGE SQ SCH ×2 (09:44→21:02)
[2020-12-25 10:39] LABS: ALBUMIN 2.8 g/dL (3.4-5.0); BILIRUBIN,TOTAL 0.2 mg/dL (0.2-1.0); CALCIUM, SERUM 9.5 mg/dL (8.5-10.1); CREATININE 2.2 mg/dL (0.6-1.3); PHOSPHORUS 3.7 mg/dL (2.5-4.9); POTASSIUM 4.3 mmol/L (3.5-5.1); TOTAL PROTEIN, SERUM 8.1 g/dL (6.4-8.2)
--- NOTE | 2020-12-25 10:50 | NUR ---
CRITICAL LAB MAY FROM LAB CALLED TO REPORT CRITICAL LAB. PT CO2 IS 41.3
--- NOTE | 2020-12-25 11:10 | NUR ---
MD COMMUNICATION RN CALLED AND LEFT MESSAGE FOR CALL BACK WITH EXCHANGE.
--- NOTE | 2020-12-25 11:40 | NUR ---
MD COMMUNICATION RN CALLED AND LEFT CALL BACK AGAIN W/ EXCHANGE
[2020-12-25 12:00] VITALS: BP 136/74
--- NOTE | 2020-12-25 12:05 | NUR ---
MD COMMUNICATION RN SPOKE TO MD. RN GAVE CRITICAL LAB OF CO2 41.3. MD ACKNOWLEDGED AND GAVE NO ORDERS OVER PHONE.
[2020-12-25] MEDS: INSULIN REGULAR, HUMAN 100 UNIT/ML 3 ML VIAL SQ PRN ×2 (12:32→21:04)
[2020-12-25] MEDS: SOD FERRIC GLUC 125 MG in IV NS 0.9% 100 ML IV SCH (14:49)
[2020-12-25 16:00] VITALS: BP 111/74
--- NOTE | 2020-12-25 19:30 | NUR ---
RN NOTE PT FOUND SEMI FOWLERS POSITION IN BED DISPLAYING NO S/S OF DISTRESS, PT ENDORSES 0/10 PAIN SCALE AND EVENLY AND UNLABORED. PT C/O NAUSEA AND EPIGASTRIC PAIN. PT CURRENTLY ON 5L O2 NC. PT IS A&OX4. R PICC, PATIENT AND INTACT. WINDOWS LAPTOP TECHNICIAN GIVEN REPORT, ALL QUESTIONS ANSWERED. JOAQUIM TRANSFERRED.
[2020-12-25 20:00] VITALS: BP 145/84
--- NOTE | 2020-12-25 20:00 | NUR ---
RN NOTE PATIENT IN BED, AWAKE, ALERT, AND ORIENTED X3. ON O2 5L VIA NASAL CANNULA. NO SOB OR ANY ACUTE RESPIRATORY DISTRESS. COTTON CATHETER DRAINING YELLOW URINE VIA GRAVITY. V/S STABLE AFEBRILE . IV ACCESS ON OSVALDO PICC, PATENT AND INTACT. BED LOCKED AND IN LOWEST POSITION. CALL LIGHT WITHIN REACH. ALL NEEDS ANTICIPATED ALL DUE MEDS GIVEN ORDERED WILL CONTINUE TO MONITOR PTS.
[2020-12-25] MEDS: MONTELUKAST SODIUM (10MG) 10 MG TABLET PO SCH (21:00)
[2020-12-25] MEDS: ATORVASTATIN 10 MG TABLET PO SCH (21:00)
--- NOTE | 2020-12-25 22:00 | NUR ---
television actor notes blood sugar at 2200hrs is 83 mg/dl no insulin coverage given per sliding scale. will checked blood sugar again in am.
[2020-12-26] VITALS (31 sets, daily range): BP systolic 106–157; BP diastolic 39–105
[2020-12-26] MEDS: diphenhydrAMINE HCL 50 MG/ML VIAL IV PRN ×4 (00:47→21:07)
[2020-12-26] MEDS: LORAZEPAM INJ 2 MG/ML VIAL IV PRN ×3 (01:48→21:56)
[2020-12-26] MEDS: IPRATROPIUM NEB FS 0.5 MG/2.5 ML AMPUL.NEB NEB SCH ×6 (03:28→23:07)
[2020-12-26] MEDS: ALBUTEROL HALF STRENGTH 1.25 MG/3 ML VIAL.NEB NEB SCH ×6 (03:28→23:07)
[2020-12-26] MEDS: GABAPENTIN 300 MG CAPSULE PO SCH ×3 (05:11→20:56)
--- NOTE | 2020-12-26 06:41 | NUR ---
television installer notes Pts in bed a/ox4 ,refused morning care offered again , pts refused at this time ,continue on 5 liters of o2 via nc sating 97 %no sob no distress noted will endorse to rn day shift for continuity of careall needs attended too.
--- NOTE | 2020-12-26 07:15 | NUR ---
RN Opening Notes Received patient comfortably resting in bed, on O2 at 5lpm via NC. No SOB, no respiratory distress. Patient asleep but arousable to voice and tactile stimuli. Patient denies pain and discomfort at this time. RUE PICC all lines intact and patent, flushing well. Call light within easy reach, bed at lowest position and locked. Will continue to monitor.
[2020-12-26] MEDS: BLOOD SUGAR DIAGNOSTIC 1 EACH STRIP IN SCH ×4 (07:46→21:31)
[2020-12-26 08:00] LABS: BASOPHILS # (AUTO) 0.1 K/uL (0.0-0.2); BASOPHILS % (AUTO) 0.6 % (0.0-2.0); EOSINOPHILS % (AUTO) 2.2 % (0.0-6.0); HEMATOCRIT 28 % (33-45); HEMOGLOBIN 8.7 g/dL (11.5-14.8); LYMPHOCYTES # (AUTO) 2.2 K/uL (0.8-4.8); LYMPHOCYTES % (AUTO) 18.6 % (20.0-44.0); MEAN CORPUSCULAR HGB CONC 31 g/dl (31.0-36.0); MEAN CORPUSCULAR VOLUME 80 fL (82-100); MONOCYTES # (AUTO) 0.8 K/uL (0.1-1.30); MONOCYTES % (AUTO) 6.9 % (2.0-12.0); NEUTROPHILS # (AUTO) 8.6 K/uL (1.8-8.9); NEUTROPHILS % (AUTO) 71.7 % (43.0-81.0); PLATELET COUNT (AUTO) 379 K/uL (150-450); RED BLOOD CELL COUNT(AUTO) 3.52 MIL/uL (4.0-5.2)
--- NOTE | 2020-12-26 08:00 | NUR ---
RN Notes Reported Critical CO2 [address] Cormier, per MD will wait for the results of ABG. Patient is stable at this time, VS WNL. Will continue to monitor patient.
[2020-12-26 08:03] LABS: CALCIUM, SERUM 9.1 mg/dL (8.5-10.1); CREATININE 2.3 mg/dL (0.6-1.3); POTASSIUM 4.5 mmol/L (3.5-5.1)
[2020-12-26] MEDS: PANTOPRAZOLE 40 MG TABLET.DR PO SCH (08:11)
[2020-12-26] MEDS: LEVOTHYROXINE SODIUM 25 MCG TABLET PO SCH (08:11)
[2020-12-26] MEDS: ASPIRIN EC 81 MG TABLET.DR PO SCH (08:11)
[2020-12-26] MEDS: CEFEPIME 2 GM in IV D5W 100 ML IV SCH ×2 (08:12→21:03)
[2020-12-26] MEDS: METHADONE HCL 5 MG TABLET PO SCH (08:12)
[2020-12-26] MEDS: HEPARIN SODIUM, PORCINE 5000 UNITS/1 ML VIAL SQ SCH ×2 (08:15→21:31)
[2020-12-26] MEDS: INSULIN GLARGINE, 100 UNIT/ML CARTRIDGE SQ SCH ×2 (08:16→21:30)
--- NOTE | 2020-12-26 08:30 | NUR ---
RN Notes All due meds given as ordered.
[2020-12-26] MEDS: INSULIN REGULAR, HUMAN 100 UNIT/ML 3 ML VIAL SQ PRN ×4 (08:34→21:28)
[2020-12-26] MEDS: risperiDONE 0.25 MG TABLET PO SCH ×4 (08:37→18:09)
[2020-12-26] MEDS: INSULIN ASPART/LISPRO 100 UNIT/ML CARTRIDGE SQ SCH ×3 (08:37→17:11)
[2020-12-26 09:16] LABS: ABG BASE EXCESS 12.3 mmol/L; ABG OXYGEN SATURATION 94.9 % (92.0-98.5); ABG PCO2 85.3 mmHg (35.0-45.0); ABG PH 7.302 (7.350-7.450); ABG PO2 82.1 mmHg (75.0-100.0); AaDO2 134.4 mmHg; COHb 0.4 % (0.5-1.5); MetHb 0.3 % (0.0-1.5); O2Hb 94.2 % (94.0-97.0); SITE, ABG Right Radial; VENT MODE, BG nasal cannula
--- NOTE | 2020-12-26 09:30 | NUR ---
RN Notes Paged Dr. Cormier and relayed ABG results with emphasis on pH 7.302, pCO2 85.3, pO2 82.1, per MD patient needs Bipap for few hours. ALso notified MD that RT already titrated O2 to 2lpm from 5lpm. Will notify RT, will continue to monitor.
--- NOTE | 2020-12-26 09:50 | NUR ---
RN Notes Paged Dr. Cormier again and notified him that per policy, patients on Bipap should be transferred to ICU. MD agreed and gave order to transfer patient to ICU for rescue Bipap and for closing monitoring. Per MD, rescue Bipap is still needed even with lowering O2 to 2lpm. Notified Charge Nurse Kaci and RT in charge. Patient stable at this time. Will continue to monitor.
--- NOTE | 2020-12-26 10:18 | NUR ---
Rn Notes Transferred patient to ICU per Dr. Cormier's order due for Bipap and closer monitoring. Bedside report given and endorsed care to receiving RN Rafael.
--- NOTE | 2020-12-26 10:22 | NUR ---
RT NOTE PT AWAKE AND ALERT. PT REFUSED BIPAP AT THIS TIME. CHARGE NURSE AARON AND RN PORTIA AWARE.
--- NOTE | 2020-12-26 10:30 | NUR ---
BUNDLE WRAPPER NOTES Patient was received at apprx 10:10 am. Patient is alert and oriented x3/4. On 2 liters 02 via n/c. Vitals assessed and documented. Patient provided care and linen changed. HOB kept elevated. Patient refused bipap. Call light with in reach. Will continue to monitor.
[2020-12-26] MEDS: ONDANSETRON HCL/PF 4 MG/2 ML VIAL IVP PRN (11:17)
--- NOTE | 2020-12-26 13:09 | NUR ---
Clinical Social Work Note Pt is a 40 year old woman who was vaping a liquid at hr bed on the [facility] unit. Pt denies this and said " It was just sitting at my school office manager". Pt denies substance dependence but is on Methadone and requesting Ativan on ICU. Pt is alert and oriented x4 but was resistant to social work treatment. You stated " who told you i need services". Pt is morbidly obese and has been living in nursing homes after several spinal surgeries. She will go to a SNF once she is medically stable. she is refusing biPAP on ICU as she says " she is claustrophobic". Pt is competent to make decisions. She has decubitae. Patient is refusing any intervention or referral from this rn social services. If she requests resources rn social services can certainly follow up at a later time. at this time, no further intervention is indicated.
[2020-12-26] MEDS: ACETAMINOPHEN 325 MG TABLET PO PRN (13:12)
[2020-12-26] MEDS ORDERED: MAG HYDROX/AL HYDROX/SIMETH 30 ML UDC PO ONE (14:00)
[2020-12-26] MEDS ORDERED: LIDOCAINE VISCOUS 2% UD 15 ML UDC MM ONE (14:00)
--- NOTE | 2020-12-26 16:00 | NUR ---
Patient given equal parts mylanta and viscous lidocaine per MD Papazian orders.
[2020-12-26] MEDS: SOD FERRIC GLUC 125 MG in IV NS 0.9% 100 ML IV SCH (16:07)
[2020-12-26] MEDS: GLUCERNA SHAKE 237 ML CAN PO SCH (16:42)
--- NOTE | 2020-12-26 18:45 | NUR ---
LYRIC WRITER CLOSING NOTES Patient is alert and oriented x3. Patient is breathing even and labored. On 02 5lpm via n/c with 02 saturation of 94%. Patient's hob elevated. Patient noted with right upper arm picc line and flushes well. Voss cath intact and hanging to gravity with clear yellow urine output of 600 cc. No c/o pain or discomfort. Patient started screaming at staff and wanted to keep it at 5 liters. Patient explained about the risks of co2 accumulation but refused. Will continue to monitor. Call light with in reach. Bed is in lowest and locked position.Will endorse to next shift for JOAQUIM and to collect stool sample.
--- NOTE | 2020-12-26 20:00 | NUR ---
RN opening notes In bed, resting comfortably in bed without any distress. On 5lpm O2 via nasal cannula, tolerating well. No complaint of pain or discomfort. Alert and oriented. Able to communicate needs verbally. Vital signs wnl. Will continue to monitor.
[2020-12-26] MEDS: ATORVASTATIN 10 MG TABLET PO SCH (20:59)
[2020-12-26] MEDS: MONTELUKAST SODIUM (10MG) 10 MG TABLET PO SCH (20:59)
[2020-12-26] MEDS: MAG HYDROX/AL HYDROX/SIMETH 30 ML UDC PO PRN (22:01)
[2020-12-27] VITALS (48 sets, daily range): BP systolic 105–177; BP diastolic 38–123
--- NOTE | 2020-12-27 00:37 | NUR ---
PT IS AWAKE ALERT ON 5L NC. NO DISTRESS. I ASKED PT IF SHE WANTS TO USE BIPAP AND SHE SAID NO SHE IS FINE. NOTIFIED RN, BIPAP S/B.
[2020-12-27] MEDS: IPRATROPIUM NEB FS 0.5 MG/2.5 ML AMPUL.NEB NEB SCH ×7 (02:19→23:30)
[2020-12-27] MEDS: ALBUTEROL HALF STRENGTH 1.25 MG/3 ML VIAL.NEB NEB SCH ×7 (02:19→23:30)
[2020-12-27] MEDS: diphenhydrAMINE HCL 50 MG/ML VIAL IV PRN ×3 (04:49→21:27)
[2020-12-27] MEDS: GABAPENTIN 300 MG CAPSULE PO SCH ×3 (04:49→21:26)
--- NOTE | 2020-12-27 04:57 | NUR ---
RN closing notes Resting comfortably in bed with no distress noted. Still on 5lpm O2 via nasal cannula tolerating well. Requested for Benedryl 1mg x 2 with allergy attacks. Noted patient ate a lot of dinner and snacks, discussed the risks of eating a lot of food before sleeping but patient did not listened. Requested for ativan 1mg x 1 for anxiety, with help. No complaint of pain or discomfort. Refused to be cleanse. No significant change of condition. Vital signs wnl. Kept clean and dry. Will endorse to next shift for continuity of care.
[2020-12-27] MEDS: MAG HYDROX/AL HYDROX/SIMETH 30 ML UDC PO PRN (06:31)
[2020-12-27] MEDS: LORAZEPAM INJ 2 MG/ML VIAL IV PRN ×3 (06:31→21:41)
--- NOTE | 2020-12-27 06:41 | NUR ---
RN notes Patient called requesting ativan 1mg to be administered as she was feeling very anxious and maalox for stomach upset. Vital signs wnl. Will monitor results and endorse to next shift.
[2020-12-27] MEDS: BLOOD SUGAR DIAGNOSTIC 1 EACH STRIP IN SCH ×4 (07:30→22:05)
--- NOTE | 2020-12-27 07:30 | NUR ---
FRUIT RANCHER OPENING NOTES Patient was received in bed sleeping. Per report patient has received anti anxiety for being anxious. On 5 liters 02 via n/c. Vitals assessed, Patient's HOB kept elevated. right upper arm picc line flushed well and patent. Call light with in reach. Will continue to monitor.
[2020-12-27] MEDS: GLUCERNA SHAKE 237 ML CAN PO SCH ×2 (08:00→17:00)
--- NOTE | 2020-12-27 08:12 | NUR ---
RT NOTE PATIENT'S TREATMENT AND ABG HELD AT THIS TIME DUE TO AGITATION PER RN(PORTIA). PATIENT IS RESTING COMFORTABLY AT THIS TIME BUT IS EASILY AGITATED AND COMBATIVE. RN WILL CALL ME WHEN PATIENT IS AWAKE.
[2020-12-27] MEDS: risperiDONE 0.25 MG TABLET PO SCH ×2 (09:00→17:00)
[2020-12-27] MEDS: PANTOPRAZOLE 40 MG TABLET.DR PO SCH (09:22)
[2020-12-27] MEDS: LEVOTHYROXINE SODIUM 25 MCG TABLET PO SCH (09:22)
[2020-12-27] MEDS: CEFEPIME 2 GM in IV D5W 100 ML IV SCH ×2 (09:22→20:25)
[2020-12-27] MEDS: METHADONE HCL 5 MG TABLET PO SCH (09:23)
[2020-12-27] MEDS: ASPIRIN EC 81 MG TABLET.DR PO SCH (09:24)
[2020-12-27] MEDS: INSULIN ASPART/LISPRO 100 UNIT/ML CARTRIDGE SQ SCH ×3 (09:32→17:38)
[2020-12-27] MEDS: HEPARIN SODIUM, PORCINE 5000 UNITS/1 ML VIAL SQ SCH ×2 (09:33→20:37)
[2020-12-27] MEDS: INSULIN REGULAR, HUMAN 100 UNIT/ML 3 ML VIAL SQ PRN ×4 (09:34→22:04)
[2020-12-27] MEDS: INSULIN GLARGINE, 100 UNIT/ML CARTRIDGE SQ SCH ×3 (09:35→22:09)
[2020-12-27 10:14] LABS: ABG BASE EXCESS 7.1 mmol/L; ABG PCO2 65.2 mmHg (35.0-45.0); ABG PH 7.339 (7.350-7.450); ABG PO2 75.8 mmHg (75.0-100.0); AaDO2 134.4 mmHg; COHb 0.2 % (0.5-1.5); MetHb 0.2 % (0.0-1.5); O2Hb 93.6 % (94.0-97.0); SITE, ABG Right Radial; VENT MODE, BG NASAL CANNULA
--- NOTE | 2020-12-27 11:00 | NUR ---
Patient teaching done regarding diet management but patient refused.
--- NOTE | 2020-12-27 15:00 | NUR ---
Patient noted with episods of anxiety and agitation and request anti anxiety. Non pharmalogical nursing interventions provided to no avail. Patient given prn ativan with good effect.Call light with in reach.
[2020-12-27 15:42] LABS: BASOPHILS # (AUTO) 0.1 K/uL (0.0-0.2); EOSINOPHILS % (AUTO) 2.2 % (0.0-6.0); LYMPHOCYTES # (AUTO) 1.3 K/uL (0.8-4.8); LYMPHOCYTES % (AUTO) 21.5 % (20.0-44.0); MEAN CORPUSCULAR HGB CONC 32 g/dl (31.0-36.0); MEAN CORPUSCULAR VOLUME 81 fL (82-100); MONOCYTES # (AUTO) 0.3 K/uL (0.1-1.30); MONOCYTES % (AUTO) 5.6 % (2.0-12.0); NEUTROPHILS # (AUTO) 4.3 K/uL (1.8-8.9); NEUTROPHILS % (AUTO) 69.7 % (43.0-81.0); RED BLOOD CELL COUNT(AUTO) 2.29 MIL/uL (4.0-5.2); WHITE BLOOD COUNT (AUTO) 6.2 K/uL (4.3-11.0)
[2020-12-27 15:50] LABS: CALCIUM, SERUM 8.8 mg/dL (8.5-10.1); CREATININE 2.1 mg/dL (0.6-1.3); POTASSIUM 4.3 mmol/L (3.5-5.1)
[2020-12-27 16:00] LABS: HEMATOCRIT 19 % (33-45); HEMOGLOBIN 5.9 g/dL (11.5-14.8)
--- NOTE | 2020-12-27 16:00 | NUR ---
Patient's blood recollected and resent to lab.
[2020-12-27 16:01] LABS: PLATELET COUNT (AUTO) 11 K/uL (150-450)
[2020-12-27 16:04] LABS: EOSINOPHILS % (MANUAL) 3 % (0-4); LYMPHOCYTES % (MANUAL) 27 % (16-48); MONOCYTES % (MANUAL) 7 % (0-11.0); NEUTROPHILS % (MANUAL) 63 (42-76)
[2020-12-27 17:10] LABS: BASOPHILS # (AUTO) 0.1 K/uL (0.0-0.2); BASOPHILS % (AUTO) 0.6 % (0.0-2.0); HEMATOCRIT 28 % (33-45); HEMOGLOBIN 8.6 g/dL (11.5-14.8); LYMPHOCYTES # (AUTO) 2.2 K/uL (0.8-4.8); LYMPHOCYTES % (AUTO) 18.7 % (20.0-44.0); MEAN CORPUSCULAR HGB CONC 31 g/dl (31.0-36.0); MEAN CORPUSCULAR VOLUME 82 fL (82-100); MONOCYTES # (AUTO) 0.7 K/uL (0.1-1.30); MONOCYTES % (AUTO) 6.4 % (2.0-12.0); NEUTROPHILS # (AUTO) 8.4 K/uL (1.8-8.9); NEUTROPHILS % (AUTO) 72.3 % (43.0-81.0); PLATELET COUNT (AUTO) 411 K/uL (150-450); RED BLOOD CELL COUNT(AUTO) 3.46 MIL/uL (4.0-5.2); WHITE BLOOD COUNT (AUTO) 11.6 K/uL (4.3-11.0)
[2020-12-27] MEDS: SOD FERRIC GLUC 125 MG in IV NS 0.9% 100 ML IV SCH (17:39)
--- NOTE | 2020-12-27 18:49 | NUR ---
KILN PUSHER CLOSING NOTES Patient was received in bed sleeping. Per report patient has received anti anxiety for being anxious. On 5 liters 02 via n/c. Vitals assessed, Patient's HOB kept elevated. right upper arm picc line flushed well and patent. Call light with in reach. Will continue to monitor. Addendum: 12/27/20 at 1849 by MAXWELL GARCIA RN INCORRECT ENTRY
--- NOTE | 2020-12-27 18:49 | NUR ---
LINING SCRUBBER CLOSING NOTES Patient is alert and oriented x3. Patient is breathing even and labored. On 02 5lpm via n/c with 02 saturation of 95%. Patient's hob elevated. Patient noted with right upper arm picc line and flushes well. Voss cath intact and hanging to gravity with clear yellow urine output of 800C. No c/o pain or discomfort. Patient non compliant with diet during shift. Patient also encouraged to turn and reposition but refused. Will continue to monitor. Call light with in reach. Bed is in lowest and locked position.Will endorse to next shift for JOAQUIM.
[2020-12-27] MEDS: ACETAMINOPHEN 325 MG TABLET PO PRN (18:57)
--- NOTE | 2020-12-27 19:30 | NUR ---
RN opening notes Received patient awake in bed watching TV. Alert and oriented. Verbally able to communicate needs. No complaint of pain or discomfort. No distress noted. On 2lpm O2 via nasal cannula tolerating well. Vital signs wnl. Kept clean and dry. Will continue to monitor. Addendum: 12/28/20 at 0246 by ASHLEY PAYNE RN on 5lpm O2 not 2lpm
[2020-12-27] MEDS: MONTELUKAST SODIUM (10MG) 10 MG TABLET PO SCH (21:26)
[2020-12-27] MEDS: ATORVASTATIN 10 MG TABLET PO SCH (21:27)
[2020-12-28] VITALS (25 sets, daily range): BP systolic 103–160; BP diastolic 64–100
--- NOTE | 2020-12-28 01:30 | NUR ---
lesa cortez at 0130. rn notified Addendum: 12/28/20 at 0558 by ERUM EASLEY RT Amended: Links added.
[2020-12-28] MEDS: ALBUTEROL HALF STRENGTH 1.25 MG/3 ML VIAL.NEB NEB SCH ×5 (03:30→19:55)
[2020-12-28] MEDS: IPRATROPIUM NEB FS 0.5 MG/2.5 ML AMPUL.NEB NEB SCH ×5 (03:30→19:55)
--- NOTE | 2020-12-28 03:30 | NUR ---
pt refused breathing tx and bipaop at 0330. rn notified Addendum: 12/28/20 at 0558 by ERUM EASLEY RT Amended: Links added.
[2020-12-28] MEDS: diphenhydrAMINE HCL 50 MG/ML VIAL IV PRN ×4 (03:33→21:18)
[2020-12-28] MEDS: GABAPENTIN 300 MG CAPSULE PO SCH ×3 (05:29→21:10)
--- NOTE | 2020-12-28 05:33 | NUR ---
RN closing notes In bed resting comfortably. No distress noted. Bipap applied for two hours at 2100 upr 2300, and asked the RT to put back the nasal cannula as she felt very uncomfortable. Maintains O2sat at 95-97% with nasal cannula. At about 0400 patient asked the RT for bipap application and was on until this time. Requested ativan 1mg x 2 and Benadryl 50mg x 2 for allergy, with help and relief. No adverse effect noted. Refused to be cleanse or have the beddings changed. Vital signs wnl. Kept clean and dry. Will endorse to next shift for continuity of care.
--- NOTE | 2020-12-28 07:15 | NUR ---
FURNITURE MOVER DRIVER OPENING NOTES RECEIVED PT RESTING IN BED. A/O X4. ON 5L O2 VIA NC. O2 SAT @96%. NO SOB OR ANY S/S OF ACUTE RESPIRATORY DISTRESS NOTED. NO PAIN REPORTED AT THIS TIME. IV ACCESS ON OSVALDO PICC LINE INTACT, PATENT AND FLUSHED. SAFETY MEASURES IMPLEMENTED. CALL LIGHT WITHIN REACH. HOB ELEVATED. BED LOCKED AND IN LOWEST POSITION WITH SIDE RAILS UP X3. WILL CONTINUE TO MONITOR
[2020-12-28] MEDS: BLOOD SUGAR DIAGNOSTIC 1 EACH STRIP IN SCH ×4 (08:18→22:16)
[2020-12-28] MEDS: METHADONE HCL 5 MG TABLET PO SCH (08:19)
[2020-12-28] MEDS: GLUCERNA SHAKE 237 ML CAN PO SCH ×2 (08:19→16:47)
[2020-12-28] MEDS: PANTOPRAZOLE 40 MG TABLET.DR PO SCH (08:19)
[2020-12-28] MEDS: risperiDONE 0.25 MG TABLET PO SCH ×2 (08:19→16:46)
[2020-12-28] MEDS: LEVOTHYROXINE SODIUM 25 MCG TABLET PO SCH (08:19)
[2020-12-28] MEDS: ASPIRIN EC 81 MG TABLET.DR PO SCH (08:19)
[2020-12-28] MEDS: CEFEPIME 2 GM in IV D5W 100 ML IV SCH ×2 (08:20→21:10)
[2020-12-28] MEDS: INSULIN ASPART/LISPRO 100 UNIT/ML CARTRIDGE SQ SCH ×3 (08:28→17:16)
[2020-12-28] MEDS: INSULIN REGULAR, HUMAN 100 UNIT/ML 3 ML VIAL SQ PRN ×4 (08:34→22:21)
[2020-12-28] MEDS: INSULIN GLARGINE, 100 UNIT/ML CARTRIDGE SQ SCH ×2 (08:36→22:20)
[2020-12-28] MEDS: HEPARIN SODIUM, PORCINE 5000 UNITS/1 ML VIAL SQ SCH ×2 (08:37→21:13)
[2020-12-28] MEDS: ACETAMINOPHEN 325 MG TABLET PO PRN ×2 (11:07→21:20)
[2020-12-28] MEDS ORDERED: LIDOCAINE VISCOUS 2% UD 15 ML UDC PO SCH (12:00)
[2020-12-28] MEDS ORDERED: MAG HYDROX/AL HYDROX/SIMETH 30 ML UDC PO SCH (12:00)
[2020-12-28] MEDS: LORAZEPAM INJ 2 MG/ML VIAL IV PRN ×2 (12:41→23:34)
--- NOTE | 2020-12-28 19:04 | NUR ---
RN CLOSING NOTES TRANSFERRED PT TO [facility] ROOM 107 PER PROTOCOL. NO SIGNIFICANT CHANGES THROUGHOUT THE SHIFT. NO SOB OR ANY DISTRESS NOTED. NO PAIN REPORTED AT THIS TIME. KEPT CLEAN AND COMFORTABLE. ALL DUE MEDS GIVEN. NEEDS ATTENDED. SAFETY MEASURES IN PLACE. WILL ENDORSE TO NIGHT RN FOR JOAQUIM.
--- NOTE | 2020-12-28 19:53 | NUR ---
RN NOTE PATIENT ALERT AND ORIENTED X4, ABLE TO MAKE NEEDS KNOWN. ON O2 5L VIA NASAL CANNULA, NO SOB OR ANY RESPIRATORY DISTRESS. DENIES ANY PAIN AT THIS TIME. COTTON CATH DRAINING YELLOW KYAW URINE VIA GRAVITY. OSVALDO PICC LINE PATENT AND INTACT. BED LOCKED AND IN LOWEST POSITION. CALL LIGHT WITHIN REACH. SAFETY MEASURES MAINTAINED. ALL NEEDS ANTICIPATED.
[2020-12-28] MEDS: ATORVASTATIN 10 MG TABLET PO SCH (21:10)
[2020-12-28] MEDS: MONTELUKAST SODIUM (10MG) 10 MG TABLET PO SCH (21:10)
[2020-12-28] MEDS: MAG HYDROX/AL HYDROX/SIMETH 30 ML UDC PO PRN (22:16)
[2020-12-29] VITALS: BP 128/78
[2020-12-29] MEDS: IPRATROPIUM NEB FS 0.5 MG/2.5 ML AMPUL.NEB NEB SCH ×7 (00:20→23:14)
[2020-12-29] MEDS: ALBUTEROL HALF STRENGTH 1.25 MG/3 ML VIAL.NEB NEB SCH ×7 (00:20→23:14)
[2020-12-29] MEDS: diphenhydrAMINE HCL 50 MG/ML VIAL IV PRN ×4 (03:32→21:59)
[2020-12-29] MEDS: ACETAMINOPHEN 325 MG TABLET PO PRN (03:38)
[2020-12-29 04:00] VITALS: BP 147/80
[2020-12-29] MEDS: GABAPENTIN 300 MG CAPSULE PO SCH ×3 (05:15→21:41)
[2020-12-29] MEDS: LORAZEPAM INJ 2 MG/ML VIAL IV PRN ×4 (05:35→23:34)
--- NOTE | 2020-12-29 07:09 | NUR ---
RN NOTE PATIENT ALERT AND ORIENTED X4. ON O2 5L VIA NASAL CANNULA, NO SOB OR ANY RESPIRATORY DISTRESS. TOLERATED BIPAP FOR 3 HOURS MAX LAST NIGHT. COTTON CATH DRAINING YELLOW [place] URINE VIA GRAVITY OUTPUT 750CC. OSVALDO PICC LINE PATENT AND INTACT. BED LOCKED AND IN LOWEST POSITION. CALL LIGHT WITHIN REACH. ENDORSED TO AM SHIFT.
[2020-12-29] MEDS ORDERED: IPRATROPIUM NEB FS 0.5 MG/2.5 ML AMPUL.NEB ONE (07:47)
[2020-12-29] MEDS ORDERED: ALBUTEROL HALF STRENGTH 1.25 MG/3 ML VIAL.NEB ONE (07:47)
[2020-12-29] MEDS: PANTOPRAZOLE 40 MG TABLET.DR PO SCH (07:48)
[2020-12-29] MEDS: LEVOTHYROXINE SODIUM 25 MCG TABLET PO SCH (07:49)
[2020-12-29] MEDS: INSULIN ASPART/LISPRO 100 UNIT/ML CARTRIDGE SQ SCH ×3 (08:03→18:23)
[2020-12-29] MEDS: METHADONE HCL 5 MG TABLET PO SCH (08:05)
[2020-12-29] MEDS: ASPIRIN EC 81 MG TABLET.DR PO SCH (08:05)
[2020-12-29] MEDS: risperiDONE 0.25 MG TABLET PO SCH ×2 (08:05→17:00)
[2020-12-29] MEDS: BLOOD SUGAR DIAGNOSTIC 1 EACH STRIP IN SCH ×4 (08:06→21:41)
[2020-12-29 08:28] VITALS: BP 144/94
[2020-12-29] MEDS: GLUCERNA SHAKE 237 ML CAN PO SCH ×2 (08:46→16:17)
[2020-12-29] MEDS: CEFEPIME 2 GM in IV D5W 100 ML IV SCH ×2 (09:11→21:39)
[2020-12-29] MEDS: HEPARIN SODIUM, PORCINE 5000 UNITS/1 ML VIAL SQ SCH (09:19)
[2020-12-29] MEDS ORDERED: MAGNESIUM HYDROXIDE 30 ML UDC PO PRN (10:30)
[2020-12-29] MEDS ORDERED: LIDOCAINE VISCOUS 2% UD 15 ML UDC MM SCH (10:30)
[2020-12-29] MEDS ORDERED: LIDOCAINE VISCOUS 2% UD 15 ML UDC MM PRN (10:42)
[2020-12-29] MEDS: INSULIN GLARGINE, 100 UNIT/ML CARTRIDGE SQ SCH ×2 (10:46→21:54)
[2020-12-29 13:09] VITALS: BP 148/90
[2020-12-29] MEDS: TRAMADOL HCL 50 MG TABLET PO PRN ×2 (16:15→23:35)
[2020-12-29 16:24] VITALS: BP 154/98
--- NOTE | 2020-12-29 16:34 | NUR ---
RN NOTES PATIENT RESTING PEACEFULLY EASILY AROUSED, ALERT AND ORIENTED X4. ON O2 5L VIA NASAL CANNULA, NO SOB NO DISTRESS NOTED, COTTON CATH DRAINING YELLOW [place] URINE VIA GRAVITY OUTPUT 355CC AT THIS TIME, OSVALDO PICC LINE PATENT AND INTACT , ALL IV MEDICATIONS GIVEN, NO ADVERSE SIDE EFFECTS NOTED, BED LOCKED AND IN LOWEST POSITION. CALL LIGHT WITHIN REACH. WILL CONTINUE TO MONITOR AND HELP REPOSITION EVERY 2 HOURS OR REQUESTED, PAIN MEDICATION IS EFFECTIVE, ALL NEEDS MET IN A TIMELY MANNER.
--- NOTE | 2020-12-29 17:27 | NUR ---
RN NOTES PATIENT MADE NEEDS KNOWN AND REQUESTED NOT TO HAVE THE RISPERIDOLE ORDER, STATED IT MAKES HER HAVE SUICIDAL THOUGHTS AND SHE REFUSES TO TAKE THE MEDICATIONS. THESE MEDS HELD AT THIS TIME. WILL CONTINUE TO EDUCATE AND PROVIDE PATIENT WITH THE PROS AND CONS OF TAKING THE MEDICATION FOR HER NEEDS BUT STILL CONTINUES TO REFUSE THE MEDICATIONS.
[2020-12-29 20:44] VITALS: BP 152/90
[2020-12-29] MEDS: MONTELUKAST SODIUM (10MG) 10 MG TABLET PO SCH (21:41)
[2020-12-29] MEDS: ATORVASTATIN 10 MG TABLET PO SCH (21:41)
[2020-12-29] MEDS: INSULIN REGULAR, HUMAN 100 UNIT/ML 3 ML VIAL SQ PRN (21:56)
--- NOTE | 2020-12-29 23:02 | NUR ---
Pt refusing BIPAP. Primary nurse Reggie lopez. Will attempt to place Pt on BIPAP throughout the night. Will cont to monitor.
[2020-12-30] VITALS (7 sets, daily range): BP systolic 143–170; BP diastolic 84–99
--- NOTE | 2020-12-30 03:05 | NUR ---
PT kept refusing BIPAP throughout the night until 304. Pt placed on BIPAP on ordered settings. Addendum: 12/30/20 at 0630 by LESLEY GARAY RT Amended: Links added.
[2020-12-30] MEDS: ALBUTEROL HALF STRENGTH 1.25 MG/3 ML VIAL.NEB NEB SCH ×6 (03:17→23:30)
[2020-12-30] MEDS: IPRATROPIUM NEB FS 0.5 MG/2.5 ML AMPUL.NEB NEB SCH ×6 (03:18→23:30)
--- NOTE | 2020-12-30 04:38 | NUR ---
Pt removed the BIPAP mask. Pt is placed on NC 5L Addendum: 12/30/20 at 0633 by LESLEY GARAY RT Amended: Links added.
[2020-12-30] MEDS: diphenhydrAMINE HCL 50 MG/ML VIAL IV PRN ×4 (04:56→20:46)
[2020-12-30] MEDS: GABAPENTIN 300 MG CAPSULE PO SCH ×3 (05:03→20:46)
[2020-12-30] MEDS: ACETAMINOPHEN 325 MG TABLET PO PRN ×2 (05:48→20:46)
[2020-12-30] MEDS: LORAZEPAM INJ 2 MG/ML VIAL IV PRN ×3 (05:51→20:46)
--- NOTE | 2020-12-30 07:39 | NUR ---
ASSOCIATE DIRECTOR OF DEVELOPMENT OPENING NOTES Pt is Asleep arousable to stimuli, no respiratory distress, on 5 liters via NC, per report patient refuses to wear BIPAP, Safety precautions implemented, bed locked in lowest position, call light within reach.
[2020-12-30] MEDS: PANTOPRAZOLE 40 MG TABLET.DR PO SCH (08:45)
[2020-12-30] MEDS: BLOOD SUGAR DIAGNOSTIC 1 EACH STRIP IN SCH ×4 (08:45→22:41)
[2020-12-30] MEDS: ASPIRIN EC 81 MG TABLET.DR PO SCH (08:45)
[2020-12-30] MEDS: METHADONE HCL 5 MG TABLET PO SCH (08:46)
[2020-12-30] MEDS: LEVOTHYROXINE SODIUM 25 MCG TABLET PO SCH (08:46)
[2020-12-30] MEDS: risperiDONE 0.25 MG TABLET PO SCH ×3 (08:47→16:06)
[2020-12-30] MEDS: CEFEPIME 2 GM in IV D5W 100 ML IV SCH ×2 (08:47→20:45)
[2020-12-30] MEDS: GLUCERNA SHAKE 237 ML CAN PO SCH ×2 (08:49→16:06)
[2020-12-30] MEDS: INSULIN ASPART/LISPRO 100 UNIT/ML CARTRIDGE SQ SCH ×3 (08:58→17:07)
[2020-12-30] MEDS: INSULIN GLARGINE, 100 UNIT/ML CARTRIDGE SQ SCH ×2 (08:59→22:42)
[2020-12-30] MEDS: INSULIN REGULAR, HUMAN 100 UNIT/ML 3 ML VIAL SQ PRN ×3 (09:00→22:45)
[2020-12-30] MEDS: FUROSEMIDE 100 MG/10 ML VIAL IV SCH ×3 (09:02→16:04)
[2020-12-30 11:32] LABS: BASOPHILS # (AUTO) 0.1 K/uL (0.0-0.2); BASOPHILS % (AUTO) 0.6 % (0.0-2.0); EOSINOPHILS % (AUTO) 2.6 % (0.0-6.0); HEMATOCRIT 29 % (33-45); HEMOGLOBIN 8.7 g/dL (11.5-14.8); LYMPHOCYTES # (AUTO) 2.5 K/uL (0.8-4.8); LYMPHOCYTES % (AUTO) 20.3 % (20.0-44.0); MEAN CORPUSCULAR HGB CONC 30 g/dl (31.0-36.0); MEAN CORPUSCULAR VOLUME 82 fL (82-100); MONOCYTES # (AUTO) 0.6 K/uL (0.1-1.30); MONOCYTES % (AUTO) 5.3 % (2.0-12.0); NEUTROPHILS # (AUTO) 8.7 K/uL (1.8-8.9); NEUTROPHILS % (AUTO) 71.2 % (43.0-81.0); PLATELET COUNT (AUTO) 403 K/uL (150-450); RED BLOOD CELL COUNT(AUTO) 3.48 MIL/uL (4.0-5.2); WHITE BLOOD COUNT (AUTO) 12.3 K/uL (4.3-11.0)
[2020-12-30 11:47] LABS: ALBUMIN 2.8 g/dL (3.4-5.0); BILIRUBIN,TOTAL 0.1 mg/dL (0.2-1.0); CALCIUM, SERUM 9.8 mg/dL (8.5-10.1); CREATININE 1.6 mg/dL (0.6-1.3); PHOSPHORUS 3.1 mg/dL (2.5-4.9); POTASSIUM 5.3 mmol/L (3.5-5.1); TOTAL PROTEIN, SERUM 7.8 g/dL (6.4-8.2)
[2020-12-30] MEDS: MAG HYDROX/AL HYDROX/SIMETH 30 ML UDC PO PRN (12:06)
--- NOTE | 2020-12-30 19:07 | NUR ---
RN CLOSING NOTES Pt is A/O X4, no respiratory distress, on 5-6 liters via NC, refuses to wear BIPAP. Refused risperdal states she develops suicidal thoughts after taking med. Lasix administered for Elevated K, with no adverse reaction noted. F/C patent. OSVALDO PICC line unable to flush, phleb unable to obtain blood. Placed order for Midline per STAINING MACHINE OPERATOR. No s/sx of hyperglycemia/hypoglycemia. Safety precautions implemented, bed locked in lowest position, call light within reach. 0730-B/S 263mg/dl insulin 14 units + sliding scale 1230 B/S 175mg/dl insulin 14 units + sliding scale 1730 B/S 127mg/dl insulin 14 units.
--- NOTE | 2020-12-30 19:30 | NUR ---
pt refusing breathing tx at this time. rn aware Addendum: 12/31/20 at 0010 by ERUM EASLEY RT Amended: Links added.
--- NOTE | 2020-12-30 20:00 | NUR ---
RN NOTE RECEIVED PT AWAKE. ALERT AND ORIENTED X3. ON 6L O2 VIA NC, DENIES ANY SOB AT THIS TIME. PT WITH COTTON DRAINING WELL. NEW MIDLINE INSERTED ON OSVALDO BY ML NURSE. FLUSHES WELL. ALL SAFETY MEASURES IN PLACE PER PROTOCOL. CALL LIGHT WITHIN REACH. WILL CONTINUE TO MONITOR.
[2020-12-30] MEDS: MONTELUKAST SODIUM (10MG) 10 MG TABLET PO SCH (21:03)
[2020-12-30] MEDS: ATORVASTATIN 10 MG TABLET PO SCH (21:03)
--- NOTE | 2020-12-31 00:36 | NUR ---
RN NOTE PT REFUSING BREATHING TX. NO DISTRESS NOTED. CONTINUE ON O2 THERAPY.
[2020-12-31] MEDS: IPRATROPIUM NEB FS 0.5 MG/2.5 ML AMPUL.NEB NEB SCH ×6 (03:30→23:42)
[2020-12-31] MEDS: ALBUTEROL HALF STRENGTH 1.25 MG/3 ML VIAL.NEB NEB SCH ×6 (03:30→23:42)
[2020-12-31] MEDS: ACETAMINOPHEN 325 MG TABLET PO PRN (03:52)
[2020-12-31] MEDS: LORAZEPAM INJ 2 MG/ML VIAL IV PRN ×4 (03:52→23:20)
[2020-12-31] MEDS: diphenhydrAMINE HCL 50 MG/ML VIAL IV PRN ×5 (03:53→21:52)
[2020-12-31 04:00] VITALS: BP 150/100
[2020-12-31] MEDS: GABAPENTIN 300 MG CAPSULE PO SCH ×3 (04:03→21:38)
--- NOTE | 2020-12-31 06:36 | NUR ---
RN NOTE PT SLEEPING AROUSES EASILY. NOT IN ANY DISTRESS. CONTINUE ON O2 THERAPY AT 5L. DENIES ANY SOB AT THIS TIME. COMPLAINS OF ABDOMINAL PAIN, TYLENOL WAS GIVEN. ALSO BEING ANXIOUS, ATIVAN GIVEN. PTS COTTON DRAINING WELL. WITH 1900 ML CLEAR URINE OUTPUT. ALL NEEDS WERE ATTENDED. KEPT CLEAN AND COMFORTABLE. ALL SAFETY MEASURE MAINTAINED. WILL ENDORSE TO NEXT SHIFT NURSE FOR JOAQUIM.
[2020-12-31 06:51] LABS: BASOPHILS # (AUTO) 0.1 K/uL (0.0-0.2); BASOPHILS % (AUTO) 0.5 % (0.0-2.0); EOSINOPHILS % (AUTO) 2.6 % (0.0-6.0); HEMATOCRIT 29 % (33-45); HEMOGLOBIN 8.7 g/dL (11.5-14.8); LYMPHOCYTES # (AUTO) 2.6 K/uL (0.8-4.8); LYMPHOCYTES % (AUTO) 19.2 % (20.0-44.0); MEAN CORPUSCULAR HGB CONC 30 g/dl (31.0-36.0); MEAN CORPUSCULAR VOLUME 81 fL (82-100); MONOCYTES # (AUTO) 0.7 K/uL (0.1-1.30); MONOCYTES % (AUTO) 5.4 % (2.0-12.0); NEUTROPHILS # (AUTO) 9.8 K/uL (1.8-8.9); NEUTROPHILS % (AUTO) 72.3 % (43.0-81.0); PLATELET COUNT (AUTO) 401 K/uL (150-450); RED BLOOD CELL COUNT(AUTO) 3.51 MIL/uL (4.0-5.2); WHITE BLOOD COUNT (AUTO) 13.5 K/uL (4.3-11.0)
[2020-12-31 07:07] LABS: ALBUMIN 2.8 g/dL (3.4-5.0); BILIRUBIN,TOTAL 0.2 mg/dL (0.2-1.0); CALCIUM, SERUM 9.7 mg/dL (8.5-10.1); CREATININE 1.9 mg/dL (0.6-1.3); PHOSPHORUS 4.6 mg/dL (2.5-4.9); TOTAL PROTEIN, SERUM 7.8 g/dL (6.4-8.2)
--- NOTE | 2020-12-31 07:36 | NUR ---
MS/RN OPENING NOTES RECEIVED PATIENT ON BED AWAKE ALERT AND ORIENTED X 4. PATIENT IS ON 5L OXYGEN VIA NASAL CANNULA SATURATING WELL. PATIENT IN NO APPARENT RESPIRATORY DISTRESS NOTED. NO COMPLAINED OF PAIN AT THIS TIME. CO2 42 MD WAS AWARE. NO NEW ORDER AT THIS TIME. WILL CONTINUE TO MONITOR.
[2020-12-31] MEDS: LEVOTHYROXINE SODIUM 25 MCG TABLET PO SCH (07:51)
[2020-12-31] MEDS: PANTOPRAZOLE 40 MG TABLET.DR PO SCH (07:51)
[2020-12-31] MEDS: BLOOD SUGAR DIAGNOSTIC 1 EACH STRIP IN SCH ×4 (07:52→21:51)
[2020-12-31 08:00] VITALS: BP 151/104
[2020-12-31] MEDS: GLUCERNA SHAKE 237 ML CAN PO SCH ×2 (08:14→16:54)
[2020-12-31] MEDS: INSULIN ASPART/LISPRO 100 UNIT/ML CARTRIDGE SQ SCH ×3 (08:19→18:00)
[2020-12-31] MEDS: CEFEPIME 2 GM in IV D5W 100 ML IV SCH ×2 (08:24→21:37)
[2020-12-31] MEDS: ASPIRIN EC 81 MG TABLET.DR PO SCH (08:31)
[2020-12-31] MEDS: risperiDONE 0.25 MG TABLET PO SCH ×2 (08:31→16:53)
[2020-12-31] MEDS: METHADONE HCL 5 MG TABLET PO SCH (08:33)
[2020-12-31] MEDS: INSULIN GLARGINE, 100 UNIT/ML CARTRIDGE SQ SCH ×2 (08:33→21:57)
--- NOTE | 2020-12-31 08:34 | NUR ---
MS/RN NOTES BS 186 MG/DL NOT ADMINISTERED LANTUS 52 UNITS DUE ADMINISTRATION OF HUMALOG 14UNITS. WILL CONTINUE TO MONITOR.
--- NOTE | 2020-12-31 08:44 | NUR ---
MS RN NOTES PATIENT REFUSED TO TAKE RESPERAL 1MG 4TAB P.O. PATIENT VERBALIZED THAT SHE DOESN'T WANT TO TAKE IT EXPLAINED THE RISK AND BENEFITS. WILL CONTINUE TO MONITOR.
[2020-12-31 10:00] VITALS: BP 151/104
[2020-12-31] MEDS ORDERED: CEFE2FRO IV (10:47)
[2020-12-31] MEDS: INSULIN REGULAR, HUMAN 100 UNIT/ML 3 ML VIAL SQ PRN ×2 (11:30→21:54)
[2020-12-31 12:00] VITALS: BP 151/104
[2020-12-31] MEDS ORDERED: SODIUM POLYSTYRENE SULFONATE 15 G/60 ML BOTTLE PO ONE (13:00)
[2020-12-31] MEDS: MAG HYDROX/AL HYDROX/SIMETH 30 ML UDC PO PRN ×2 (14:27→23:20)
[2020-12-31 16:00] VITALS: BP 145/102
--- NOTE | 2020-12-31 19:07 | NUR ---
MS/RN OPENING NOTES RECEIVED PATIENT ON BED AWAKE ALERT AND ORIENTED X 4. PATIENT IS ON 5L OXYGEN VIA NASAL CANNULA SATURATING WELL. PATIENT IN NO APPARENT RESPIRATORY DISTRESS NOTED. NO COMPLAINED OF PAIN AT THIS TIME. IV ACCESS AT [facility] UPPER ARM MIDLINE PATENT AND INTACT. SEEN AND EXAMINED BY MD WITH ORDERS MADE AND CARRIED OUT. ALL DUE MEDICATIONS WAS GIVEN. SAFETY PRECAUTIONS WAS IN PLACED. BED IN LOWEST POSITION AND LOCKED. SIDERAILS UP X2. CALL LIGHT WITHIN REACH. WILL ENDORSED TO PNEUMATIC JACK OPERATOR FOR JOAQUIM. Addendum: 12/31/20 at 1912 by KEZIA WHITE RN ERROR
--- NOTE | 2020-12-31 19:12 | NUR ---
MS/RN CLOSING NOTES RECEIVED PATIENT ON BED AWAKE ALERT AND ORIENTED X 4. PATIENT IS ON 5L OXYGEN VIA NASAL CANNULA SATURATING WELL. PATIENT IN NO APPARENT RESPIRATORY DISTRESS NOTED. NO COMPLAINED OF PAIN AT THIS TIME. IV ACCESS AT RIGHT UPPER ARM MIDLINE PATENT AND INTACT. SEEN AND EXAMINED BY MD WITH ORDERS MADE AND CARRIED OUT. ALL DUE MEDICATIONS WAS GIVEN. SAFETY PRECAUTIONS WAS IN PLACED. BED IN LOWEST POSITION AND LOCKED. SIDERAILS UP X2. CALL LIGHT WITHIN REACH. WILL ENDORSED TO RN CORRECTIONAL FOR JOAQUIM.
--- NOTE | 2020-12-31 19:40 | NUR ---
RN NOTE PT RECEIVED IN BED. PT IS ON 5L OF 02 VIA NC SHOWING NO S/S OF RESP DISTRESS. PT IS A/0X4. COTTON CATH NOTED. SKIN INTACT. RIGHT UPPER ARM MIDLINE NOTED. LINE FLUSHED, PATENT, AND INTACT WITH NO INFILTRATION. ALL SAFETY MEASURES IMPLEMENTED. CALL LIGHT WITHIN REACH. BED ALARM ON. BED LOCKED AND IN LOWEST POSITION. WILL CONTINUE TO MONITOR AND ASSESS FOR ANY CHANGES.
[2020-12-31 20:00] VITALS: BP 155/95
[2020-12-31] MEDS: ATORVASTATIN 10 MG TABLET PO SCH (21:38)
[2020-12-31] MEDS: MONTELUKAST SODIUM (10MG) 10 MG TABLET PO SCH (21:38)
[2021-01-01 04:00] VITALS: BP 152/91
[2021-01-01] MEDS: ALBUTEROL HALF STRENGTH 1.25 MG/3 ML VIAL.NEB NEB SCH ×3 (04:29→11:30)
[2021-01-01] MEDS: IPRATROPIUM NEB FS 0.5 MG/2.5 ML AMPUL.NEB NEB SCH ×3 (04:29→11:30)
--- NOTE | 2021-01-01 04:30 | NUR ---
RN NOTE PT REFUSING TO BE CLEANED AND TO HAVE LINENS CHANGED. 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 [employer] TASK FORCE PLANNERS SHYLA MADE AWARE.
[2021-01-01] MEDS: MAG HYDROX/AL HYDROX/SIMETH 30 ML UDC PO PRN (05:31)
[2021-01-01] MEDS: GABAPENTIN 300 MG CAPSULE PO SCH ×2 (05:31→12:36)
[2021-01-01] MEDS: LORAZEPAM INJ 2 MG/ML VIAL IV PRN ×2 (05:32→11:51)
[2021-01-01 06:26] LABS: BASOPHILS # (AUTO) 0.1 K/uL (0.0-0.2); BASOPHILS % (AUTO) 0.6 % (0.0-2.0); EOSINOPHILS % (AUTO) 1.6 % (0.0-6.0); HEMATOCRIT 33 % (33-45); LYMPHOCYTES # (AUTO) 1.9 K/uL (0.8-4.8); LYMPHOCYTES % (AUTO) 19.4 % (20.0-44.0); MEAN CORPUSCULAR HGB CONC 31 g/dl (31.0-36.0); MEAN CORPUSCULAR VOLUME 82 fL (82-100); MONOCYTES # (AUTO) 0.6 K/uL (0.1-1.30); MONOCYTES % (AUTO) 5.8 % (2.0-12.0); NEUTROPHILS % (AUTO) 72.6 % (43.0-81.0); PLATELET COUNT (AUTO) 395 K/uL (150-450); RED BLOOD CELL COUNT(AUTO) 3.98 MIL/uL (4.0-5.2); WHITE BLOOD COUNT (AUTO) 9.7 K/uL (4.3-11.0)
--- NOTE | 2021-01-01 06:33 | NUR ---
RN NOTE NO CHANGES IN PT CONDITION DURING SHIFT. PT IS ON 5L OF 02 VIA NC SHOWING NO S/S OF RESP DISTRESS. PT IS A/0X4. RIGHT UPPER ARM MIDLINE FLUSHED, PATENT, AND INTACT WITH NO INFILTRATION. ALL DUE MEDS GIVEN ORDERED. PT KEPT CLEAN AND COMFORTABLE. ALL SAFETY MEASURES IMPLEMENTED. CALL LIGHT WITHIN REACH. BED ALARM ON. BED LOCKED AND IN LOWEST POSITION. WILL ENDORSE TO MORNING SHIFT RN FOR JOAQUIM.
[2021-01-01 06:35] LABS: ALBUMIN 2.9 g/dL (3.4-5.0); BILIRUBIN,TOTAL 0.1 mg/dL (0.2-1.0); CALCIUM, SERUM 9.6 mg/dL (8.5-10.1); CREATININE 1.7 mg/dL (0.6-1.3); MAGNESIUM 2.5 mg/dL (1.8-2.4); PHOSPHORUS 3.2 mg/dL (2.5-4.9); POTASSIUM 5.8 mmol/L (3.5-5.1); TOTAL PROTEIN, SERUM 8.2 g/dL (6.4-8.2)
[2021-01-01 08:00] VITALS: BP 177/83
[2021-01-01] MEDS: GLUCERNA SHAKE 237 ML CAN PO SCH (08:00)
--- NOTE | 2021-01-01 08:04 | NUR ---
TELE NURSE OPENING NOTE RECEIVE REPORT BOAT FUELER NURSE. UPON INITIAL ASSESSMENT, PATIENT IS AWAKE. MORNING BLOOD SUGAR IS 241. WILL BE FOLLOWING SLIDING SCALE PER PROTOCOL FOR INSULIN. PROVIDE MORNING CARE. PUT BED IN THE LOWEST POSITION WITH 3 SIDE RAIL UP AND HEAD OF THE BED ELEVATED. IV IS INTACT. COTTON IS IN PLACE. WILL CONTINUE TO MONITOR.
[2021-01-01] MEDS: BLOOD SUGAR DIAGNOSTIC 1 EACH STRIP IN SCH ×2 (08:28→12:33)
[2021-01-01] MEDS: PANTOPRAZOLE 40 MG TABLET.DR PO SCH (08:36)
[2021-01-01] MEDS: ASPIRIN EC 81 MG TABLET.DR PO SCH (08:36)
[2021-01-01] MEDS: diphenhydrAMINE HCL 50 MG/ML VIAL IV PRN ×2 (08:55→13:40)
[2021-01-01] MEDS: METHADONE HCL 5 MG TABLET PO SCH (09:00)
[2021-01-01] MEDS: risperiDONE 0.25 MG TABLET PO SCH (09:00)
[2021-01-01] MEDS: CEFEPIME 2 GM in IV D5W 100 ML IV SCH (09:03)
[2021-01-01] MEDS: LEVOTHYROXINE SODIUM 25 MCG TABLET PO SCH (09:04)
[2021-01-01] MEDS ORDERED: DEXTROSE 50%-WATER 50 ML DISP.SYRIN IVP ONE (10:00)
[2021-01-01] MEDS ORDERED: INSULIN REGULAR, HUMAN 100 UNIT/ML 10 ML VIAL IV ONE (10:00)
[2021-01-01] MEDS ORDERED: INSULIN REGULAR, HUMAN 100 UNIT/ML 3 ML VIAL IV ONE (10:00)
--- NOTE | 2021-01-01 10:00 | NUR ---
telecommunications manager note dr carbone aware that k 5.8 notified that transfer to snf order insulin and d50 %
[2021-01-01] MEDS: INSULIN ASPART/LISPRO 100 UNIT/ML CARTRIDGE SQ SCH ×2 (10:21→13:23)
[2021-01-01] MEDS: INSULIN REGULAR, HUMAN 100 UNIT/ML 3 ML VIAL SQ PRN ×2 (10:29→12:35)
[2021-01-01] MEDS: INSULIN GLARGINE, 100 UNIT/ML CARTRIDGE SQ SCH (10:40)
[2021-01-01] MEDS ORDERED: SODIUM POLYSTYRENE SULFONATE 15 G/60 ML BOTTLE PO ONE (11:00)
--- NOTE | 2021-01-01 11:00 | NUR ---
MS RN NOTE PER DR ROLLINS OK TO GIVE KAYEXALATE AWARE THAT EARLIER WAS ORDERED 10 UNITS INSULIN AND D50% IV STATED STILL OK TO GIVE
--- NOTE | 2021-01-01 11:20 | NUR ---
MS RN NOTE CALLED TO DR CRUZ NOTIFIED THAT PATIENT STRANGELY REFUSED TO TAKE KAYEXALATE DESPITE EXPLANATION OFFERED X3, NO NEW ORDER GIVEN AT THIS TIME
--- NOTE | 2021-01-01 11:25 | NUR ---
TELE NURSE NOTE. PATIENT HAD ORDER TO LOWER OXYGEN FROM 5L TO 4L LITTER AND CONTINUE TO MONITOR THE PATIENT. PATIENT REFUSES STRONGLY, STATING, "I WILL NOT BE ABLE TO BREATH WITH 4 LITTERS OF OXYGEN. PATIENT HAD ORDER FOR KAYEXELATE TO LOWER POTASSIUM OF 5.8. PATIENT STRONGLY REFUSES. WILL CONTINUE TO MONITOR AND PROVIDE COMFORT.
[2021-01-01 12:00] VITALS: BP 145/100
[2021-01-01 12:58] LABS: CALCIUM, SERUM 9.8 mg/dL (8.5-10.1); CREATININE 1.6 mg/dL (0.6-1.3); POTASSIUM 5.5 mmol/L (3.5-5.1)
--- NOTE | 2021-01-01 13:50 | NUR ---
television and radio repairer note per Tati shaver dnp ok to transfer to snf aware that k 5.5
--- NOTE | 2021-01-01 14:00 | NUR ---
rn note called to [facility] spoke with layce rnr report given notified that hr was 105 stated that donte velasquez , Addendum: 01/01/21 at 1523 by DIANA CHANDRA RN [address] clarita fair that hr 105 also aware that k 5.5 still ok to transfer
--- NOTE | 2021-01-01 15:23 | NUR ---
MS RN NOTE AMBULANCE HERE, REPORT GIVEN, OK TO LEAVE MID LINE PATIENT WILL HAVE CONT ATB , WENT TO SNF WITH STABLE CONDITION
== END 2021-01-01 15:05 | DRG 291 ==
LOC: ER 21:25 → ICU 12-22 01:10 → TELE1 12-24 11:26 → MEDSG1 12-26 08:11 → ICU 12-26 10:13 → TELE1 12-28 18:33 → MEDSG1 12-30 07:50
PROVIDERS: ADMIT Family Medicine; ATTEND Nurse Practitioner Acute Care
PROC: 02HV33Z Insertion of Infusion Device into Superior Vena Cava, Percutaneous Approach (ICD-10-PCS; principal; 2020-12-22)
PROC: B548ZZA Ultrasonography of Superior Vena Cava, Guidance (ICD-10-PCS; 2020-12-22)
PROC: 05HB33Z Insertion of Infusion Device into Right Basilic Vein, Percutaneous Approach (ICD-10-PCS; 2020-12-30)
PROC: 5A1935Z Respiratory Ventilation, Less than 24 Consecutive Hours (ICD-10-PCS; 2020-12-30)
DX: I11.0 Hypertensive heart disease with heart failure (principal); J18.9 Pneumonia, unspecified organism; J96.21 Acute and chronic respiratory failure with hypoxia; J96.22 Acute and chronic respiratory failure with hypercapnia; N17.0 Acute kidney failure with tubular necrosis; N39.0 Urinary tract infection, site not specified; E44.0 Moderate protein-calorie malnutrition; E87.2 Acidosis; J98.11 Atelectasis; Z68.43 Body mass index [BMI] 50.0-59.9, adult; E66.2 Morbid (severe) obesity with alveolar hypoventilation; D69.6 Thrombocytopenia, unspecified; E11.9 Type 2 diabetes mellitus without complications; Z20.822 Contact with and (suspected) exposure to COVID-19; E87.5 Hyperkalemia; Z88.1 Allergy status to other antibiotic agents; Z88.2 Allergy status to sulfonamides; Z83.3 Family history of diabetes mellitus; Z79.4 Long term (current) use of insulin; Z91.19 Patient's noncompliance with other medical treatment and regimen; D50.9 Iron deficiency anemia, unspecified; I50.33 Acute on chronic diastolic (congestive) heart failure; Y95 Nosocomial condition; E83.52 Hypercalcemia; D72.829 Elevated white blood cell count, unspecified; Z74.09 Other reduced mobility
CPT/HCPCS: 36410; 36415; 36569; 36600; 71045-TC; 76604-TC; 76770-TC; 80048-TC; 80053-TC; 80061-TC; 80076-TC; 81001; 82570-TC; 82728-TC; 82803-TC; 82962-TC; 83540-TC; 83605-TC; 83735-TC; 83880; 83970; 84100-TC; 84155; 84165; 84439-TC; 84443-TC; 84484-TC; 84703-TC; 85025-TC; 85610-TC; 87040-TC; 87081-TC; 87086-TC; 93307-TC; 94660; 94760-TC; 94799-TC; 97530-TC; C9803; G0378; J0692; J1200; J1644; J1815; J1940; J2060; J2405; J2916; J3490; J7030; J7050; J7060; U0003